=== PATIENT | male | born 1975 | race Caucasian/White ===

== ENCOUNTER 2019-03-12 16:26 | Inpatient (IN) ==
[2019-03-12] MEDS ORDERED: 0.9 % Sodium Chloride 1,000 ML IVC ONE ×2 (16:53→22:57)
[2019-03-12 17:25] LABS: Basophils % 0.4 %; Eosinophils # 0.3 K/mcL (0.0-0.6); Eosinophils % 2.2 %; Hematocrit 30.8 % (37.5-50.1); Hemoglobin 9.3 g/dL (12.9-16.9); Immature Granulocytes % 0.6 % (0-4); Lymphocytes # 1.6 K/mcL (0.6-4.6); Lymphocytes % 13.9 %; Mean Corpuscular HGB Conc 30.2 g/dL (31.6-35.5); Mean Corpuscular Hemoglobin 20.9 pg (28.0-33.3); Mean Corpuscular Volume 69.4 fL (83.0-100.0); Mean Platelet Volume 9.4 fL (9.4-12.4); Monocytes # 0.9 K/mcL (0.0-1.3); Monocytes % 8.2 %; Platelet Count 751 K/mcL (140-400); Red Blood Count 4.44 M/mcL (4.19-5.50); Red Cell Distribution Width 17.9 % (11.5-14.5); Segmented Neutrophils % 74.7 %; White Blood Count 11.3 K/mcL (4.3-11.1)
[2019-03-12 17:30] LABS: Basophils # 0.1 K/mcL (0.0-0.2); Neutrophils # 8.4 K/mcL (1.6-8.9)
[2019-03-12 17:47] LABS: Albumin 3.9 g/dL (3.5-5.7); Albumin/Globulin Ratio 0.9 (1.1-2.2); Bilirubin,Total 0.6 mg/dL (0.3-1.0); Calcium 9.3 mg/dL (8.6-10.3); Globulin 4.5 g/dL (2.4-3.5); Total Protein 8.4 g/dL (6.4-8.9)
[2019-03-12 17:53] LABS: Anisocytosis 1+ (Not Present); Hypochromasia Present (Not Present); Large Platelets Present (Not Present); Microcytosis Present (Not Present); Platelet Estimate Marked Increase (Normal); Stomatocytes 1+ (Not Present)
[2019-03-12 18:02] LABS: Bilirubin,Urine Negative (Negative); Blood,Urine Negative (Negative); Clarity,Urine Turbid (Clear); Color,Urine Yellow (Yellow); Glucose,Urine (UA) Normal (Normal); Ketones,Urine Negative (Negative); Leukocyte Esterase,Urine Negative (Negative); Nitrite,Urine Negative (Negative); Protein,Urine 30 mg/dL (Neg-Trace); Specific Gravity,Urine 1.014 (1.010-1.025); Urobilinogen,Urine Normal (Normal)
[2019-03-12 18:05] LABS: Bacteria,Urine None Seen per hpf (None-Few); Hyaline Casts,Urine None Seen per lpf (None-Few); Squamous Epithelial Cell,Urine Many per lpf (None-Few)
[2019-03-12] MEDS ORDERED: Naloxone 0.4 MG/ML INJ IVP PRN (22:57)
[2019-03-12] MEDS ORDERED: Acetaminophen 325 MG TABLET PO PRN (23:00)
[2019-03-12] MEDS: *HR* HYDROcodone/Acet 5/325 mg TABLET PO PRN (23:47)
[2019-03-13] MEDS ORDERED: 0.9 % Sodium Chloride 1,000 ML IVC ONE ×2 (00:03→00:04)
[2019-03-13 02:16] LABS: Hematocrit 25.4 % (37.5-50.1); Mean Corpuscular HGB Conc 29.5 g/dL (31.6-35.5); Mean Corpuscular Hemoglobin 20.9 pg (28.0-33.3); Mean Corpuscular Volume 70.9 fL (83.0-100.0); Mean Platelet Volume 9.8 fL (9.4-12.4); Platelet Count 631 K/mcL (140-400); Red Blood Count 3.58 M/mcL (4.19-5.50); Red Cell Distribution Width 17.6 % (11.5-14.5); White Blood Count 10.3 K/mcL (4.3-11.1)
[2019-03-13 02:17] LABS: Hemoglobin 7.5 g/dL (12.9-16.9)
[2019-03-13 03:19] LABS: Albumin 3.2 g/dL (3.5-5.7); Albumin/Globulin Ratio 0.9 (1.1-2.2); Bilirubin,Total 0.4 mg/dL (0.3-1.0); Calcium 8.1 mg/dL (8.6-10.3); Globulin 3.5 g/dL (2.4-3.5); Magnesium 1.8 mg/dL (1.6-2.6); Phosphorous 4.5 mg/dL (2.7-4.5); Potassium 2.9 mEq/L (3.5-5.1); Total Protein 6.7 g/dL (6.4-8.9)
[2019-03-13] MEDS ORDERED: Calcium Gluconate 1gm/50mL 1 GM/50 ML BAG IVPB ONE (04:28)
[2019-03-13] MEDS: *HR* HYDROcodone/Acet 5/325 mg TABLET PO PRN ×3 (11:12→23:59)
[2019-03-13 14:28] LABS: Immature Reticulocyte % 25.7 % (11.0-38.0); Retculocyte # 0.06 M/mcL (0.05-0.10); Reticulocyte % 1.6 % (1.6-2.8)
[2019-03-13 14:45] LABS: Potassium 3.5 mEq/L (3.5-5.1)
[2019-03-13 14:46] LABS: % Iron Saturation 4 % (20-55); Iron 19 mcg/dL (65-175); Transferrin 338 mg/dL (203-362)
[2019-03-13 15:05] LABS: Ferritin 10 ng/mL (20-250)
[2019-03-13 15:11] LABS: Folate 20.1 ng/mL (3.0-16.0)
[2019-03-13] MEDS: Iron Polysaccharide Complex 150 MG CAPSULE PO SCH (17:04)
[2019-03-14] MEDS: Iron Polysaccharide Complex 150 MG CAPSULE PO SCH (08:08)
[2019-03-14 08:25] LABS: Calcium 9.4 mg/dL (8.6-10.3); Potassium 3.2 mEq/L (3.5-5.1)
[2019-03-14 08:40] LABS: Immature Granulocytes % 0.5 % (0-4)
[2019-03-14 08:41] LABS: Basophils # 0.1 K/mcL (0.0-0.2); Basophils % 0.5 %; Eosinophils # 0.3 K/mcL (0.0-0.6); Eosinophils % 2.9 %; Hematocrit 28.8 % (37.5-50.1); Hemoglobin 8.6 g/dL (12.9-16.9); Lymphocytes % 19.6 %; Mean Corpuscular HGB Conc 29.9 g/dL (31.6-35.5); Mean Corpuscular Hemoglobin 21.2 pg (28.0-33.3); Mean Corpuscular Volume 70.9 fL (83.0-100.0); Mean Platelet Volume 9.7 fL (9.4-12.4); Monocytes # 0.9 K/mcL (0.0-1.3); Monocytes % 9.1 %; Neutrophils # 6.9 K/mcL (1.6-8.9); Platelet Count 741 K/mcL (140-400); Red Blood Count 4.06 M/mcL (4.19-5.50); Red Cell Distribution Width 18.1 % (11.5-14.5); Segmented Neutrophils % 67.4 %; White Blood Count 10.3 K/mcL (4.3-11.1)
[2019-03-14 09:14] LABS: Anisocytosis 1+ (Not Present); Platelet Estimate Marked Increase (Normal)
[2019-03-14 09:15] LABS: Hypochromasia Present (Not Present); Microcytosis Present (Not Present)
[2019-03-14] MEDS: *HR* HYDROcodone/Acet 5/325 mg TABLET PO PRN ×2 (10:09→18:11)
[2019-03-14] MEDS ORDERED: Magnesium Oxide 400 MG TABLET PO ONE (11:12)
[2019-03-14] MEDS: 0.9 % Sodium Chloride 1,000 ML IVC SCH (12:38)
[2019-03-15] MEDS: *HR* HYDROcodone/Acet 5/325 mg TABLET PO PRN ×3 (00:28→20:04)
[2019-03-15] MEDS: 0.9 % Sodium Chloride 1,000 ML IVC SCH (00:29)
[2019-03-15 05:04] LABS: Basophils # 0.1 K/mcL (0.0-0.2); Basophils % 0.5 %; Eosinophils # 0.3 K/mcL (0.0-0.6); Eosinophils % 2.6 %; Hematocrit 27.9 % (37.5-50.1); Hemoglobin 8.2 g/dL (12.9-16.9); Immature Granulocytes % 0.5 % (0-4); Lymphocytes # 2.3 K/mcL (0.6-4.6); Lymphocytes % 21.9 %; Mean Corpuscular HGB Conc 29.4 g/dL (31.6-35.5); Mean Corpuscular Hemoglobin 21.2 pg (28.0-33.3); Mean Corpuscular Volume 72.3 fL (83.0-100.0); Mean Platelet Volume 9.3 fL (9.4-12.4); Monocytes # 0.9 K/mcL (0.0-1.3); Monocytes % 8.4 %; Neutrophils # 6.8 K/mcL (1.6-8.9); Platelet Count 685 K/mcL (140-400); Red Blood Count 3.86 M/mcL (4.19-5.50); Red Cell Distribution Width 18.2 % (11.5-14.5); Segmented Neutrophils % 66.1 %; White Blood Count 10.3 K/mcL (4.3-11.1)
[2019-03-15 05:26] LABS: Calcium 9.3 mg/dL (8.6-10.3); Potassium 3.1 mEq/L (3.5-5.1)
[2019-03-15] MEDS: Iron Polysaccharide Complex 150 MG CAPSULE PO SCH (08:47)
[2019-03-15 09:07] LABS: Magnesium 2.1 mg/dL (1.6-2.6)
[2019-03-15] MEDS ORDERED: 0.9 % Sodium Chloride 1,000 ML IVC SCH (13:45)
[2019-03-16] MEDS: *HR* HYDROcodone/Acet 5/325 mg TABLET PO PRN ×3 (02:09→19:34)
[2019-03-16 05:31] LABS: Eosinophils % 3.1 %; Mean Platelet Volume 10.2 fL (9.4-12.4)
[2019-03-16 05:33] LABS: Basophils % 0.4 %; Eosinophils # 0.3 K/mcL (0.0-0.6); Hematocrit 27.2 % (37.5-50.1); Hemoglobin 8.1 g/dL (12.9-16.9); Immature Granulocytes % 0.5 % (0-4); Lymphocytes # 1.8 K/mcL (0.6-4.6); Lymphocytes % 19.3 %; Mean Corpuscular HGB Conc 29.8 g/dL (31.6-35.5); Mean Corpuscular Hemoglobin 20.9 pg (28.0-33.3); Mean Corpuscular Volume 70.3 fL (83.0-100.0); Monocytes # 0.8 K/mcL (0.0-1.3); Monocytes % 9.1 %; Neutrophils # 6.2 K/mcL (1.6-8.9); Platelet Count 663 K/mcL (140-400); Red Blood Count 3.87 M/mcL (4.19-5.50); Red Cell Distribution Width 18.3 % (11.5-14.5); Segmented Neutrophils % 67.6 %; White Blood Count 9.2 K/mcL (4.3-11.1)
[2019-03-16 05:46] LABS: Calcium 9.2 mg/dL (8.6-10.3); Potassium 3.3 mEq/L (3.5-5.1)
[2019-03-16 06:25] LABS: Hypochromasia Present (Not Present)
[2019-03-16 06:26] LABS: Anisocytosis 1+ (Not Present); Platelet Estimate Marked Increase (Normal)
[2019-03-16] MEDS: Iron Polysaccharide Complex 150 MG CAPSULE PO SCH (09:44)
[2019-03-17] MEDS: *HR* HYDROcodone/Acet 5/325 mg TABLET PO PRN ×4 (01:40→22:41)
[2019-03-17] MEDS: Cholecalciferol (D-3) 1,000 UNIT (25MCG) TABLET PO SCH (09:55)
[2019-03-17] MEDS: Iron Polysaccharide Complex 150 MG CAPSULE PO SCH (09:55)
[2019-03-17 10:28] LABS: Basophils # 0.1 K/mcL (0.0-0.2); Basophils % 0.5 %; Eosinophils # 0.2 K/mcL (0.0-0.6); Eosinophils % 2.5 %; Hematocrit 30.2 % (37.5-50.1); Hemoglobin 8.9 g/dL (12.9-16.9); Immature Granulocytes % 0.3 % (0-4); Lymphocytes # 1.6 K/mcL (0.6-4.6); Lymphocytes % 16.3 %; Mean Corpuscular HGB Conc 29.5 g/dL (31.6-35.5); Mean Corpuscular Hemoglobin 20.9 pg (28.0-33.3); Mean Corpuscular Volume 71.1 fL (83.0-100.0); Mean Platelet Volume 9.3 fL (9.4-12.4); Monocytes % 10.1 %; Neutrophils # 6.8 K/mcL (1.6-8.9); Platelet Count 705 K/mcL (140-400); Red Blood Count 4.25 M/mcL (4.19-5.50); Red Cell Distribution Width 18.3 % (11.5-14.5); Segmented Neutrophils % 70.3 %; White Blood Count 9.7 K/mcL (4.3-11.1)
[2019-03-17 10:49] LABS: Calcium 9.9 mg/dL (8.6-10.3); Potassium 3.3 mEq/L (3.5-5.1)
[2019-03-18 05:39] LABS: Calcium 10.5 mg/dL (8.6-10.3); Potassium 3.7 mEq/L (3.5-5.1)
[2019-03-18] MEDS ORDERED: 0.9 % Sodium Chloride 1,000 ML IV ONE (05:46)
[2019-03-18] MEDS: Iron Polysaccharide Complex 150 MG CAPSULE PO SCH (07:44)
[2019-03-18] MEDS: Cholecalciferol (D-3) 1,000 UNIT (25MCG) TABLET PO SCH (07:44)
[2019-03-18 09:26] LABS: Potassium 3.6 mEq/L (3.5-5.1)
[2019-03-18] MEDS: *HR* HYDROcodone/Acet 5/325 mg TABLET PO PRN ×3 (10:31→22:49)
[2019-03-18] MEDS: 0.9 % Sodium Chloride 1,000 ML IVC SCH ×2 (11:37→21:40)
[2019-03-19 04:26] LABS: Calcium 9.5 mg/dL (8.6-10.3); Potassium 3.1 mEq/L (3.5-5.1)
[2019-03-19] MEDS: Cholecalciferol (D-3) 1,000 UNIT (25MCG) TABLET PO SCH (07:55)
[2019-03-19] MEDS: Iron Polysaccharide Complex 150 MG CAPSULE PO SCH (07:55)
[2019-03-19] MEDS: *HR* HYDROcodone/Acet 5/325 mg TABLET PO PRN ×2 (10:21→19:27)
[2019-03-19] MEDS ORDERED: 0.9 % Sodium Chloride 1,000 ML ONE (12:40)
[2019-03-19] MEDS: 0.9 % Sodium Chloride 1,000 ML IVC SCH ×2 (13:00→23:01)
[2019-03-20] MEDS: *HR* HYDROcodone/Acet 5/325 mg TABLET PO PRN ×3 (01:38→17:47)
[2019-03-20 06:09] LABS: Calcium 9.5 mg/dL (8.6-10.3); Potassium 3.2 mEq/L (3.5-5.1)
[2019-03-20] MEDS: Iron Polysaccharide Complex 150 MG CAPSULE PO SCH (09:07)
[2019-03-20] MEDS: Cholecalciferol (D-3) 1,000 UNIT (25MCG) TABLET PO SCH (09:07)
[2019-03-21] MEDS: *HR* HYDROcodone/Acet 5/325 mg TABLET PO PRN ×4 (00:20→22:01)
[2019-03-21 04:40] LABS: Hematocrit 31.7 % (37.5-50.1); Hemoglobin 9.5 g/dL (12.9-16.9); Mean Corpuscular Hemoglobin 21.1 pg (28.0-33.3); Mean Corpuscular Volume 70.3 fL (83.0-100.0); Mean Platelet Volume 9.7 fL (9.4-12.4); Platelet Count 596 K/mcL (140-400); Red Blood Count 4.51 M/mcL (4.19-5.50); Red Cell Distribution Width 18.8 % (11.5-14.5); White Blood Count 8.8 K/mcL (4.3-11.1)
[2019-03-21 05:06] LABS: Calcium 10.6 mg/dL (8.6-10.3); Magnesium 2.2 mg/dL (1.6-2.6); Potassium 3.3 mEq/L (3.5-5.1)
[2019-03-21] MEDS: 0.9 % Sodium Chloride 1,000 ML IVC SCH ×2 (08:32→18:52)
[2019-03-21] MEDS: Iron Polysaccharide Complex 150 MG CAPSULE PO SCH (08:33)
[2019-03-21] MEDS: Cholecalciferol (D-3) 1,000 UNIT (25MCG) TABLET PO SCH (08:33)
[2019-03-22] MEDS: *HR* HYDROcodone/Acet 5/325 mg TABLET PO PRN ×2 (04:05→13:24)
[2019-03-22 05:24] LABS: Albumin 4.1 g/dL (3.5-5.7); Bilirubin,Total 0.7 mg/dL (0.3-1.0); Calcium 9.7 mg/dL (8.6-10.3); Globulin 4.2 g/dL (2.4-3.5); Potassium 3.2 mEq/L (3.5-5.1); Total Protein 8.3 g/dL (6.4-8.9)
[2019-03-22] MEDS: Iron Polysaccharide Complex 150 MG CAPSULE PO SCH (08:27)
[2019-03-22 11:53] VITALS: BP 115/82
== END 2019-03-22 13:39 | disposition home or self-care (01) | DRG 683 ==
LOC: EMEROOARM 16:26 → SUATTDRO 18:54 → 2ANU 18:54
PROVIDERS: ADMIT Student in an Organized Health Care Education/Training Program; ATTEND Internal Medicine

== ENCOUNTER 2019-03-24 18:40 | Observation (INO) ==
[2019-03-24 19:45] LABS: Basophils # 0.1 K/mcL (0.0-0.2); Basophils % 0.7 %; Eosinophils # 0.3 K/mcL (0.0-0.6); Hematocrit 36.6 % (37.5-50.1); Immature Granulocytes % 0.6 % (0-4); Lymphocytes # 2.2 K/mcL (0.6-4.6); Mean Corpuscular HGB Conc 31.7 g/dL (31.6-35.5); Mean Corpuscular Hemoglobin 21.7 pg (28.0-33.3); Mean Corpuscular Volume 68.4 fL (83.0-100.0); Mean Platelet Volume 10.4 fL (9.4-12.4); Monocytes # 1.2 K/mcL (0.0-1.3); Monocytes % 9.4 %; Neutrophils # 8.5 K/mcL (1.6-8.9); Platelet Count 731 K/mcL (140-400); Red Blood Count 5.35 M/mcL (4.19-5.50); Red Cell Distribution Width 19.9 % (11.5-14.5); Segmented Neutrophils % 69.3 %; White Blood Count 12.3 K/mcL (4.3-11.1)
[2019-03-24 19:46] LABS: Hemoglobin 11.6 g/dL (12.9-16.9)
[2019-03-24] MEDS ORDERED: Morphine Sulfate 2 MG/ML SYRINGE IVP ONE (19:46)
[2019-03-24] MEDS ORDERED: Isovue-370 500 ML BOTTLE IVP ONE (19:46)
[2019-03-24] MEDS ORDERED: Pantoprazole 40 MG VIAL IVP ONE (19:46)
[2019-03-24] MEDS ORDERED: 0.9 % Sodium Chloride 1,000 ML IVC ONE (19:46)
[2019-03-24] MEDS ORDERED: Ondansetron 4 MG/2 ML VIAL IVP ONE (19:46)
[2019-03-24 20:04] LABS: Microcytosis Present (Not Present)
[2019-03-24 20:05] LABS: Platelet Estimate Marked Increase (Normal)
[2019-03-24 20:12] LABS: Albumin 4.9 g/dL (3.5-5.7); Albumin/Globulin Ratio 0.9 (1.1-2.2); Bilirubin,Direct 0.3 mg/dL (0.0-0.2); Bilirubin,Indirect 0.6 mg/dL (0.0-1.0); Bilirubin,Total 0.9 mg/dL (0.3-1.0); Globulin 5.3 g/dL (2.4-3.5); Potassium 3.2 mEq/L (3.5-5.1); Total Protein 10.2 g/dL (6.4-8.9)
[2019-03-24] MEDS ORDERED: 0.9 % Sodium Chloride 1,000 ML IVC SCH (20:45)
[2019-03-25] MEDS ORDERED: Potassium Chloride Elixir 20 MEQ/15 ML UDC PO ONE (00:36)
[2019-03-25 01:11] LABS: Bilirubin,Urine Negative (Negative); Blood,Urine Negative (Negative); Clarity,Urine Cloudy (Clear); Color,Urine Yellow (Yellow); Glucose,Urine (UA) Normal (Normal); Ketones,Urine Negative (Negative); Leukocyte Esterase,Urine Negative (Negative); Nitrite,Urine Negative (Negative); Protein,Urine 100 mg/dL (Neg-Trace); Specific Gravity,Urine 1.022 (1.010-1.025); Urobilinogen,Urine Normal (Normal)
[2019-03-25] MEDS ORDERED: Acetaminophen 325 MG TABLET PO PRN (01:44)
[2019-03-25] MEDS ORDERED: Ondansetron 4 MG/2 ML VIAL IVP PRN (02:14)
[2019-03-25] MEDS: *HR* Heparin 5,000 UNIT/ML VIAL SQ SCH ×2 (05:35→16:04)
[2019-03-25 06:18] LABS: Phosphorous 4.8 mg/dL (2.7-4.5)
[2019-03-25 06:19] LABS: Albumin 4.1 g/dL (3.5-5.7); Bilirubin,Direct 0.2 mg/dL (0.0-0.2); Bilirubin,Indirect 0.4 mg/dL (0.0-1.0); Bilirubin,Total 0.6 mg/dL (0.3-1.0); Calcium 9.7 mg/dL (8.6-10.3); Globulin 4.2 g/dL (2.4-3.5); Potassium 3.4 mEq/L (3.5-5.1); Total Protein 8.3 g/dL (6.4-8.9)
[2019-03-25 07:10] LABS: Hepatitis B Surface Antigen Nonreactive (Nonreactive)
[2019-03-25 07:38] LABS: Hepatitis B Core IgM Nonreactive (Nonreactive)
[2019-03-25 07:39] LABS: Hepatitis C Virus Antibody Nonreactive (Nonreactive)
[2019-03-25 07:40] LABS: Hepatitis A Antibody IgM Nonreactive (Nonreactive)
[2019-03-25] MEDS: 0.9 % Sodium Chloride 1,000 ML IVC SCH ×4 (09:32→21:08)
[2019-03-25] MEDS: Fluticasone Propionate Nasal 50 MCG/SPRAY BOTTLE NS SCH ×2 (09:35→19:41)
[2019-03-25] MEDS: *HR* OxyCODONE Immed Rel 5 MG TABLET PO PRN ×2 (16:04→23:23)
[2019-03-26] MEDS: 0.9 % Sodium Chloride 1,000 ML IVC SCH ×3 (03:42→20:07)
[2019-03-26] MEDS: *HR* Heparin 5,000 UNIT/ML VIAL SQ SCH ×2 (05:19→17:52)
[2019-03-26 06:28] LABS: Hematocrit 28.1 % (37.5-50.1); Hemoglobin 8.3 g/dL (12.9-16.9); Mean Corpuscular HGB Conc 29.5 g/dL (31.6-35.5); Mean Corpuscular Hemoglobin 21.2 pg (28.0-33.3); Mean Corpuscular Volume 71.9 fL (83.0-100.0); Mean Platelet Volume 10.9 fL (9.4-12.4); Platelet Count 387 K/mcL (140-400); Red Blood Count 3.91 M/mcL (4.19-5.50); Red Cell Distribution Width 19.2 % (11.5-14.5); White Blood Count 8.4 K/mcL (4.3-11.1)
[2019-03-26 06:49] LABS: Albumin 3.6 g/dL (3.5-5.7); Albumin/Globulin Ratio 1.1 (1.1-2.2); Bilirubin,Total 0.6 mg/dL (0.3-1.0); Calcium 8.8 mg/dL (8.6-10.3); Globulin 3.4 g/dL (2.4-3.5); Magnesium 1.7 mg/dL (1.6-2.6); Potassium 3.2 mEq/L (3.5-5.1)
[2019-03-26] MEDS: Fluticasone Propionate Nasal 50 MCG/SPRAY BOTTLE NS SCH ×2 (09:22→20:03)
[2019-03-26] MEDS: *HR* OxyCODONE Immed Rel 5 MG TABLET PO PRN ×2 (11:20→20:03)
[2019-03-27] MEDS: 0.9 % Sodium Chloride 1,000 ML IVC SCH ×2 (00:13→03:52)
[2019-03-27 02:17] LABS: Hematocrit 29.4 % (37.5-50.1); Hemoglobin 8.6 g/dL (12.9-16.9); Mean Corpuscular HGB Conc 29.3 g/dL (31.6-35.5); Mean Corpuscular Hemoglobin 21.6 pg (28.0-33.3); Mean Corpuscular Volume 73.9 fL (83.0-100.0); Mean Platelet Volume 10.5 fL (9.4-12.4); Platelet Count 351 K/mcL (140-400); Red Blood Count 3.98 M/mcL (4.19-5.50); Red Cell Distribution Width 19.2 % (11.5-14.5)
[2019-03-27] MEDS: *HR* OxyCODONE Immed Rel 5 MG TABLET PO PRN (02:18)
[2019-03-27 02:43] LABS: Albumin 3.5 g/dL (3.5-5.7); Bilirubin,Total 0.5 mg/dL (0.3-1.0); Calcium 8.8 mg/dL (8.6-10.3); Globulin 3.5 g/dL (2.4-3.5); Potassium 3.6 mEq/L (3.5-5.1)
[2019-03-27] MEDS: *HR* Heparin 5,000 UNIT/ML VIAL SQ SCH (05:36)
[2019-03-27] MEDS: Fluticasone Propionate Nasal 50 MCG/SPRAY BOTTLE NS SCH (10:32)
[2019-03-27 11:19] VITALS: BP 155/85
== END 2019-03-27 13:24 | disposition home or self-care (01) ==
LOC: EMEROOARM 18:40 → 3NENU 18:40 → SUATTDRO 03-25 00:27 → 3NENU 03-25 01:05 → 3BNU 03-25 11:17
PROVIDERS: ADMIT Internal Medicine; ATTEND Family Medicine

== ENCOUNTER 2019-04-01 01:13 | Observation (INO) ==
[2019-04-01 02:27] LABS: Basophils # 0.1 K/mcL (0.0-0.2); Basophils % 0.6 %; Eosinophils # 0.3 K/mcL (0.0-0.6); Eosinophils % 2.2 %; Hematocrit 37.1 % (37.5-50.1); Immature Granulocytes % 0.6 % (0-4); Immature Platelets 4.7 % (1.1-6.1); Lymphocytes # 1.8 K/mcL (0.6-4.6); Lymphocytes % 13.3 %; Mean Corpuscular HGB Conc 31.3 g/dL (31.6-35.5); Mean Corpuscular Hemoglobin 21.9 pg (28.0-33.3); Monocytes # 0.9 K/mcL (0.0-1.3); Monocytes % 7.1 %; Platelet Count 411 K/mcL (140-400); Red Cell Distribution Width 20.8 % (11.5-14.5); Segmented Neutrophils % 76.2 %
[2019-04-01] MEDS ORDERED: *HR* FentaNYL (PF) 100 MCG/2 ML VIAL IVP ONE (02:35)
[2019-04-01] MEDS ORDERED: Ondansetron 4 MG/2 ML VIAL IVP ONE (02:35)
[2019-04-01 02:41] LABS: Hemoglobin 11.6 g/dL (12.9-16.9); Neutrophils # 10.1 K/mcL (1.6-8.9); White Blood Count 13.3 K/mcL (4.3-11.1)
[2019-04-01 02:45] LABS: Albumin 4.8 g/dL (3.5-5.7); Bilirubin,Total 1.2 mg/dL (0.3-1.0); Calcium 10.7 mg/dL (8.6-10.3); Globulin 4.9 g/dL (2.4-3.5); Potassium 3.7 mEq/L (3.5-5.1); Total Protein 9.7 g/dL (6.4-8.9)
[2019-04-01] MEDS ORDERED: 0.9 % Sodium Chloride 1,000 ML IVC ONE (02:55)
[2019-04-01 03:29] LABS: Bilirubin,Urine Small (Negative); Blood,Urine Negative (Negative); Clarity,Urine Cloudy (Clear); Color,Urine Dark Yellow (Yellow); Glucose,Urine (UA) Normal (Normal); Ketones,Urine Negative (Negative); Leukocyte Esterase,Urine Negative (Negative); Nitrite,Urine Negative (Negative); PH,Urine 5.5 pH Units (5.0-8.0); Protein,Urine 100 mg/dL (Neg-Trace); Specific Gravity,Urine 1.028 (1.010-1.025); Urobilinogen,Urine Normal (Normal)
[2019-04-01 03:59] LABS: Squamous Epithelial Cell,Urine Many per lpf (None-Few)
[2019-04-01 04:18] LABS: Granular Casts,Urine Few per lpf (None Seen); Hyaline Casts,Urine Many per lpf (None-Few)
[2019-04-01 04:19] LABS: Bacteria,Urine Moderate per hpf (None-Few)
[2019-04-01] MEDS ORDERED: Naloxone 0.4 MG/ML INJ IVP PRN ×2 (05:04→07:12)
[2019-04-01] MEDS ORDERED: Ondansetron 4 MG/2 ML VIAL IVP PRN (07:12)
[2019-04-01] MEDS: Ringers Solution, Lactated 1,000 ML IVC SCH ×2 (09:30→20:46)
[2019-04-01 10:19] LABS: Hepatitis B Surface Antigen Nonreactive (Nonreactive)
[2019-04-01 10:48] LABS: Hepatitis B Core IgM Nonreactive (Nonreactive)
[2019-04-01 10:49] LABS: Hepatitis A Antibody IgM Nonreactive (Nonreactive); Hepatitis C Virus Antibody Nonreactive (Nonreactive)
[2019-04-01] MEDS: *HR* HYDROcodone/Acet 5/325 mg TABLET PO PRN ×2 (15:34→21:44)
[2019-04-01] MEDS: Fluticasone Propionate Nasal 50 MCG/SPRAY BOTTLE NS SCH (20:50)
[2019-04-02 05:06] LABS: Basophils # 0.1 K/mcL (0.0-0.2); Basophils % 0.6 %; Eosinophils # 0.3 K/mcL (0.0-0.6); Eosinophils % 2.9 %; Hematocrit 33.9 % (37.5-50.1); Hemoglobin 10.2 g/dL (12.9-16.9); Immature Granulocytes % 0.7 % (0-4); Lymphocytes # 2.4 K/mcL (0.6-4.6); Lymphocytes % 24.3 %; Mean Corpuscular HGB Conc 30.1 g/dL (31.6-35.5); Mean Corpuscular Hemoglobin 21.4 pg (28.0-33.3); Mean Corpuscular Volume 71.1 fL (83.0-100.0); Mean Platelet Volume 10.6 fL (9.4-12.4); Monocytes # 0.9 K/mcL (0.0-1.3); Monocytes % 8.8 %; Neutrophils # 6.3 K/mcL (1.6-8.9); Platelet Count 439 K/mcL (140-400); Red Blood Count 4.77 M/mcL (4.19-5.50); Red Cell Distribution Width 20.7 % (11.5-14.5); Segmented Neutrophils % 62.7 %
[2019-04-02 05:26] LABS: Potassium 3.8 mEq/L (3.5-5.1)
[2019-04-02 05:28] LABS: Albumin 4.3 g/dL (3.5-5.7); Bilirubin,Direct 0.4 mg/dL (0.0-0.2); Bilirubin,Indirect 0.5 mg/dL (0.0-1.0); Bilirubin,Total 0.9 mg/dL (0.3-1.0); Globulin 4.1 g/dL (2.4-3.5); Magnesium 1.9 mg/dL (1.6-2.6); Phosphorous 4.4 mg/dL (2.7-4.5); Total Protein 8.4 g/dL (6.4-8.9)
[2019-04-02 05:51] LABS: Folate 14.1 ng/mL (3.0-16.0)
[2019-04-02] MEDS: amLODIPine 5 MG TABLET PO SCH (07:53)
[2019-04-02] MEDS: Cholecalciferol (D-3) 1,000 UNIT (25MCG) TABLET PO SCH (07:53)
[2019-04-02] MEDS: Fluticasone Propionate Nasal 50 MCG/SPRAY BOTTLE NS SCH ×2 (07:53→20:47)
[2019-04-02] MEDS: Iron Sucrose Complex 250 MG in 0.9 % Sodium Chloride 250 ML IVPB SCH (10:09)
[2019-04-02] MEDS: Cyanocobalamin (B-12) 1,000 MCG/ML VIAL SQ SCH (10:09)
[2019-04-02] MEDS: 0.9 % Sodium Chloride 1,000 ML IVC SCH ×2 (10:10→20:47)
[2019-04-02] MEDS: *HR* HYDROcodone/Acet 5/325 mg TABLET PO PRN ×3 (10:10→23:38)
[2019-04-03] MEDS: 0.9 % Sodium Chloride 1,000 ML IVC SCH (06:20)
[2019-04-03 06:23] VITALS: BP 145/90
[2019-04-03 06:42] LABS: Hemoglobin 9.2 g/dL (12.9-16.9); Mean Corpuscular HGB Conc 30.7 g/dL (31.6-35.5); Mean Corpuscular Volume 71.6 fL (83.0-100.0); Mean Platelet Volume 10.5 fL (9.4-12.4); Platelet Count 338 K/mcL (140-400); Red Blood Count 4.19 M/mcL (4.19-5.50); Red Cell Distribution Width 20.8 % (11.5-14.5)
[2019-04-03 07:01] LABS: Calcium 9.3 mg/dL (8.6-10.3); Potassium 3.6 mEq/L (3.5-5.1)
[2019-04-03] MEDS: Cholecalciferol (D-3) 1,000 UNIT (25MCG) TABLET PO SCH (09:14)
[2019-04-03] MEDS: amLODIPine 5 MG TABLET PO SCH (09:14)
[2019-04-03] MEDS: Cyanocobalamin (B-12) 1,000 MCG/ML VIAL SQ SCH (09:15)
[2019-04-03] MEDS: Iron Sucrose Complex 250 MG in 0.9 % Sodium Chloride 250 ML IVPB SCH (09:15)
[2019-04-03] MEDS: Fluticasone Propionate Nasal 50 MCG/SPRAY BOTTLE NS SCH (09:16)
[2019-04-03] MEDS: *HR* HYDROcodone/Acet 5/325 mg TABLET PO PRN (11:29)
== END 2019-04-03 15:30 | disposition home or self-care (01) ==
LOC: 3NENU 01:13 → EMEROOARM 01:13 → SUATTDRO 03:44 → 3NENU 04:30
PROVIDERS: ADMIT Family Medicine; ATTEND Student in an Organized Health Care Education/Training Program

== ENCOUNTER 2019-04-13 18:45 | Observation (INO) ==
[2019-04-13 19:24] LABS: Basophils # 0.1 K/mcL (0.0-0.2); Basophils % 0.7 %; Eosinophils # 0.1 K/mcL (0.0-0.6); Eosinophils % 0.6 %; Hematocrit 38.1 % (37.5-50.1); Hemoglobin 12.2 g/dL (12.9-16.9); Immature Granulocytes % 1.1 % (0-4); Lymphocytes # 1.4 K/mcL (0.6-4.6); Mean Corpuscular Hemoglobin 23.5 pg (28.0-33.3); Mean Corpuscular Volume 73.3 fL (83.0-100.0); Mean Platelet Volume 10.3 fL (9.4-12.4); Monocytes # 0.9 K/mcL (0.0-1.3); Monocytes % 8.6 %; Neutrophils # 7.5 K/mcL (1.6-8.9); Platelet Count 463 K/mcL (140-400); Red Cell Distribution Width 23.6 % (11.5-14.5)
[2019-04-13 19:44] LABS: Albumin 4.8 g/dL (3.5-5.7); Calcium 10.7 mg/dL (8.6-10.3); Globulin 4.6 g/dL (2.4-3.5); Potassium 4.4 mEq/L (3.5-5.1); Total Protein 9.4 g/dL (6.4-8.9)
[2019-04-13 19:46] LABS: Anisocytosis 2+ (Not Present); Ovalocytes 2+ (Not Present); Platelet Estimate Normal (Normal)
[2019-04-13 20:06] LABS: Bacteria,Urine None Seen per hpf (None-Few); Bilirubin,Urine Negative (Negative); Blood,Urine Negative (Negative); Clarity,Urine Cloudy (Clear); Color,Urine Dark Yellow (Yellow); Glucose,Urine (UA) Normal (Normal); Hyaline Casts,Urine Moderate per lpf (None-Few); Ketones,Urine Negative (Negative); Leukocyte Esterase,Urine Negative (Negative); Nitrite,Urine Negative (Negative); Protein,Urine 100 mg/dL (Neg-Trace); Specific Gravity,Urine 1.023 (1.010-1.025); Squamous Epithelial Cell,Urine Many per lpf (None-Few); Urobilinogen,Urine Normal (Normal)
[2019-04-13] MEDS ORDERED: Naloxone 0.4 MG/ML INJ IVP PRN (20:34)
[2019-04-13] MEDS ORDERED: 0.9 % Sodium Chloride 1,000 ML IVC SCH (20:45)
[2019-04-13 22:02] LABS: Sodium, Urine 11.5 mEq/L
[2019-04-13 22:07] LABS: Estimated Average Glucose 120 mg/dl
[2019-04-13 23:27] LABS: Calcium 10.5 mg/dL (8.6-10.3); Potassium 4.2 mEq/L (3.5-5.1)
[2019-04-13] MEDS ORDERED: *HR* Dextrose 50 % in Water (Syg) 50 ML SYRINGE IVP PRN (23:46)
[2019-04-13] MEDS ORDERED: D5% in Water 1,000 ML IVC PRN (23:46)
[2019-04-13] MEDS ORDERED: Dextrose Gel 15 GM/37.5 ML TUBE PO PRN ×2 (23:46)
[2019-04-14] MEDS ORDERED: 0.9 % Sodium Chloride 1,000 ML IVC SCH (00:30)
[2019-04-14] MEDS: *HR* Heparin 5,000 UNIT/ML VIAL SQ SCH ×3 (06:17→23:50)
[2019-04-14 06:51] LABS: Basophils # 0.1 K/mcL (0.0-0.2); Basophils % 0.6 %; Eosinophils # 0.1 K/mcL (0.0-0.6); Eosinophils % 1.4 %; Hematocrit 32.8 % (37.5-50.1); Immature Granulocytes % 1.1 % (0-4); Lymphocytes # 1.9 K/mcL (0.6-4.6); Lymphocytes % 23.8 %; Mean Corpuscular HGB Conc 31.4 g/dL (31.6-35.5); Mean Corpuscular Volume 73.4 fL (83.0-100.0); Mean Platelet Volume 10.7 fL (9.4-12.4); Monocytes # 0.8 K/mcL (0.0-1.3); Monocytes % 10.5 %; Platelet Count 383 K/mcL (140-400); Red Blood Count 4.47 M/mcL (4.19-5.50); Red Cell Distribution Width 23.7 % (11.5-14.5); Segmented Neutrophils % 62.6 %; White Blood Count 7.9 K/mcL (4.3-11.1)
[2019-04-14 07:00] LABS: Hemoglobin 10.3 g/dL (12.9-16.9)
[2019-04-14 07:16] LABS: Albumin 4.1 g/dL (3.5-5.7); Albumin/Globulin Ratio 1.1 (1.1-2.2); Bilirubin,Direct 0.3 mg/dL (0.0-0.2); Bilirubin,Indirect 0.6 mg/dL (0.0-1.0); Bilirubin,Total 0.9 mg/dL (0.3-1.0); Calcium 9.4 mg/dL (8.6-10.3); Globulin 3.7 g/dL (2.4-3.5); Magnesium 1.7 mg/dL (1.6-2.6); Potassium 3.9 mEq/L (3.5-5.1); Total Protein 7.8 g/dL (6.4-8.9)
[2019-04-14 07:30] LABS: Anisocytosis 2+ (Not Present); Platelet Estimate Normal (Normal); Poikilocytosis 1+ (Not Present)
[2019-04-14] MEDS: Insulin LISPRO 300 UNITS/3 ML VIAL SQ SCH ×3 (08:44→16:30)
[2019-04-14] MEDS: Cholecalciferol (D-3) 1,000 UNIT (25MCG) TABLET PO SCH (08:48)
[2019-04-14] MEDS: Fluticasone Propionate Nasal 50 MCG/SPRAY BOTTLE NS SCH ×2 (08:48→23:49)
[2019-04-14] MEDS: 0.9 % Sodium Chloride 1,000 ML IVC SCH ×2 (11:37→23:49)
[2019-04-14 14:50] LABS: Complement C3 199 mg/dL (87-200)
[2019-04-15 05:48] LABS: Basophils # 0.1 K/mcL (0.0-0.2); Basophils % 0.8 %; Eosinophils # 0.1 K/mcL (0.0-0.6); Eosinophils % 1.5 %; Hematocrit 30.8 % (37.5-50.1); Hemoglobin 9.7 g/dL (12.9-16.9); Immature Granulocytes % 1.3 % (0-4); Lymphocytes % 25.2 %; Mean Corpuscular HGB Conc 31.5 g/dL (31.6-35.5); Mean Corpuscular Hemoglobin 23.3 pg (28.0-33.3); Mean Corpuscular Volume 73.9 fL (83.0-100.0); Mean Platelet Volume 10.8 fL (9.4-12.4); Monocytes # 0.7 K/mcL (0.0-1.3); Monocytes % 8.2 %; Platelet Count 363 K/mcL (140-400); Red Blood Count 4.17 M/mcL (4.19-5.50); Red Cell Distribution Width 23.1 % (11.5-14.5)
[2019-04-15 06:10] LABS: Calcium 9.3 mg/dL (8.6-10.3); Potassium 3.6 mEq/L (3.5-5.1)
[2019-04-15 06:12] LABS: % Iron Saturation 15 % (20-55); Iron 65 mcg/dL (65-175); Transferrin 319 mg/dL (203-362)
[2019-04-15 06:23] LABS: Anisocytosis 1+ (Not Present); Platelet Estimate Normal (Normal)
[2019-04-15] MEDS: *HR* Heparin 5,000 UNIT/ML VIAL SQ SCH ×3 (06:37→21:41)
[2019-04-15] MEDS: Insulin LISPRO 300 UNITS/3 ML VIAL SQ SCH ×3 (08:01→16:22)
[2019-04-15] MEDS: Cholecalciferol (D-3) 1,000 UNIT (25MCG) TABLET PO SCH (08:03)
[2019-04-15] MEDS: Fluticasone Propionate Nasal 50 MCG/SPRAY BOTTLE NS SCH ×2 (08:03→21:42)
[2019-04-15] MEDS ORDERED: Acetaminophen 325 MG TABLET PO PRN (10:40)
[2019-04-15] MEDS: 0.9 % Sodium Chloride 1,000 ML IVC SCH ×2 (12:42→23:46)
[2019-04-16] MEDS: *HR* Heparin 5,000 UNIT/ML VIAL SQ SCH (05:36)
[2019-04-16] MEDS: Cholecalciferol (D-3) 1,000 UNIT (25MCG) TABLET PO SCH (07:20)
[2019-04-16] MEDS: Fluticasone Propionate Nasal 50 MCG/SPRAY BOTTLE NS SCH (07:20)
[2019-04-16] MEDS: Insulin LISPRO 300 UNITS/3 ML VIAL SQ SCH (07:35)
[2019-04-16 10:58] VITALS: BP 128/84
[2019-04-16 11:20] LABS: Calcium 9.4 mg/dL (8.6-10.3)
[2019-04-17 10:17] LABS: ANA IgG by ELISA NONE DETECTED (None Detected)
[2019-04-17 10:23] LABS: Serine Protease-3 Antibody 1 AU/mL (0-19)
[2019-04-18 01:38] LABS: Alpha 2 Globulin (PEP) 0.91 g/dL (0.48-1.05); Beta Globulin (PEP) 1.22 g/dL (0.48-1.10)
[2019-04-18 09:33] LABS: IFE Reflexed NOT DONE
== END 2019-04-16 11:36 | disposition home or self-care (01) ==
LOC: 2ANU 18:45 → EMEROOARM 18:45 → SUATTDRO 20:49 → 2ANU 21:09
PROVIDERS: ADMIT Family Medicine; ATTEND Internal Medicine

== ENCOUNTER 2019-04-22 22:41 | Observation (INO) ==
[2019-04-23 00:15] LABS: Bilirubin,Urine Small (Negative); Blood,Urine Negative (Negative); Clarity,Urine Cloudy (Clear); Color,Urine Dark Yellow (Yellow); Glucose,Urine (UA) Normal (Normal); Ketones,Urine Trace mg/dL (Negative); Leukocyte Esterase,Urine Negative (Negative); Nitrite,Urine Negative (Negative); Protein,Urine 100 mg/dL (Neg-Trace); Specific Gravity,Urine 1.028 (1.010-1.025); Urobilinogen,Urine Normal (Normal)
[2019-04-23 00:20] LABS: Bacteria,Urine None Seen per hpf (None-Few); Squamous Epithelial Cell,Urine Many per lpf (None-Few)
[2019-04-23] MEDS: 0.9 % Sodium Chloride 1,000 ML IVC SCH ×4 (00:33→17:28)
[2019-04-23 00:44] LABS: Hyaline Casts,Urine Few per lpf (None-Few)
[2019-04-23 00:49] LABS: Basophils % 0.3 %; Eosinophils % 0.1 %; Hemoglobin 12.6 g/dL (12.9-16.9); Immature Granulocytes % 0.7 % (0-4); Lymphocytes # 1.8 K/mcL (0.6-4.6); Lymphocytes % 13.9 %; Mean Corpuscular HGB Conc 32.3 g/dL (31.6-35.5); Mean Corpuscular Hemoglobin 24.2 pg (28.0-33.3); Mean Platelet Volume 9.9 fL (9.4-12.4); Monocytes % 7.9 %; Platelet Count 492 K/mcL (140-400); Red Cell Distribution Width 24.1 % (11.5-14.5); Segmented Neutrophils % 77.1 %
[2019-04-23 00:52] LABS: INR 1.2; Prothrombin Time 13.3 Seconds (9.4-12.1)
[2019-04-23 00:54] LABS: Activated Partial Thrombo Time 31.1 Seconds (26.0-36.0)
[2019-04-23 00:59] LABS: Alanine Aminotransferase 128 Units/L (7-52); Alkaline Phosphatase 287 Units/L (34-104); Aspartate Amino Transferase 89 Units/L (13-39); BUN/Creatinine Ratio 11 (6-26); Bilirubin,Direct 0.3 mg/dL (0.0-0.2); Bilirubin,Indirect 0.6 mg/dL (0.0-1.0); Bilirubin,Total 0.9 mg/dL (0.3-1.0); Blood Urea Nitrogen 42 mg/dL (6-20); Calcium 11.1 mg/dL (8.6-10.3); Carbon Dioxide 29 mEq/L (23-29); Chloride 84 mEq/L (98-107); Globulin 4.8 g/dL (2.4-3.5); Glucose 136 mg/dL (70-105); Magnesium 1.6 mg/dL (1.6-2.6); Osmolality,Calculated 289 (280-300); Phosphorous 3.8 mg/dL (2.7-4.5); Potassium 3.3 mEq/L (3.5-5.1); Sodium 133 mEq/L (136-145); Total Protein 9.8 g/dL (6.4-8.9); Troponin I < 0.03 ng/mL (< 0.04); eGFR For African Americans 21 (> 60); eGFR For Non-African Americans 17 (> 60)
[2019-04-23 01:23] LABS: Anisocytosis 1+ (Not Present); Hypochromasia Present (Not Present); Platelet Estimate Normal (Normal)
[2019-04-23] MEDS ORDERED: Naloxone 0.4 MG/ML INJ IVP PRN ×2 (03:14→09:08)
[2019-04-23] MEDS ORDERED: 0.9 % Sodium Chloride 1,000 ML IVC SCH (03:15)
[2019-04-23 05:06] LABS: Basophils # 0.1 K/mcL (0.0-0.2); Basophils % 0.4 %; Eosinophils % 0.2 %; Hematocrit 33.6 % (37.5-50.1); Immature Granulocytes % 0.6 % (0-4); Lymphocytes # 2.1 K/mcL (0.6-4.6); Lymphocytes % 17.9 %; Mean Corpuscular HGB Conc 32.1 g/dL (31.6-35.5); Mean Corpuscular Hemoglobin 24.6 pg (28.0-33.3); Mean Corpuscular Volume 76.5 fL (83.0-100.0); Mean Platelet Volume 10.3 fL (9.4-12.4); Monocytes # 1.1 K/mcL (0.0-1.3); Monocytes % 9.6 %; Neutrophils # 8.4 K/mcL (1.6-8.9); Platelet Count 381 K/mcL (140-400); Red Blood Count 4.39 M/mcL (4.19-5.50); Red Cell Distribution Width 23.9 % (11.5-14.5); Segmented Neutrophils % 71.3 %; White Blood Count 11.8 K/mcL (4.3-11.1)
[2019-04-23 05:13] LABS: Hemoglobin 10.8 g/dL (12.9-16.9)
[2019-04-23 05:14] LABS: Albumin/Globulin Ratio 1.1 (1.1-2.2); Bilirubin,Total 0.8 mg/dL (0.3-1.0); Calcium 9.3 mg/dL (8.6-10.3); Globulin 3.8 g/dL (2.4-3.5); Total Protein 7.8 g/dL (6.4-8.9)
[2019-04-23 05:51] LABS: Anisocytosis 1+ (Not Present); Hypochromasia Present (Not Present); Platelet Estimate Normal (Normal)
[2019-04-23 06:27] LABS: Adenovirus Not Detected (Not Detect); Bordetella Pertussis Not Detected (Not Detect); Chlamydophila pneumoniae Not Detected (Not Detect); Coronavirus 229E Not Detected (Not Detect); Coronavirus HKU1 Not Detected (Not Detect); Coronavirus NL63 Not Detected (Not Detect); Coronavirus OC43 Not Detected (Not Detect); Human Metapneumovirus Not Detected (Not Detect); Human Rhinovirus/Enterovirus Not Detected (Not Detect); Influenza A Subtype 2009 H1 Not Detected (Not Detect); Influenza A Untypeable Not Detected (Not Detect); Influenza B Not Detected (Not Detect); Mycoplasma pneumoniae Not Detected (Not Detect); Parainfluenza Virus 1 Not Detected (Not Detect); Parainfluenza Virus 2 Not Detected (Not Detect); Parainfluenza Virus 3 Not Detected (Not Detect); Parainfluenza Virus 4 Not Detected (Not Detect); Respiratory Syncytial Virus Not Detected (Not Detect)
[2019-04-23] MEDS ORDERED: Potassium Chloride Elixir 20 MEQ/15 ML UDC PO ONE ×2 (09:34→13:00)
[2019-04-23] MEDS: *HR* Heparin 5,000 UNIT/ML VIAL SQ SCH (17:29)
[2019-04-24] MEDS ORDERED: *HR* OxyCODONE Immed Rel 5 MG TABLET PO ONE (04:17)
[2019-04-24 04:37] LABS: Basophils # 0.1 K/mcL (0.0-0.2); Basophils % 0.5 %; Eosinophils # 0.1 K/mcL (0.0-0.6); Eosinophils % 0.9 %; Immature Granulocytes % 0.6 % (0-4); Lymphocytes # 2.2 K/mcL (0.6-4.6); Lymphocytes % 22.8 %; Mean Corpuscular HGB Conc 31.3 g/dL (31.6-35.5); Mean Corpuscular Hemoglobin 24.7 pg (28.0-33.3); Mean Platelet Volume 10.1 fL (9.4-12.4); Monocytes # 0.8 K/mcL (0.0-1.3); Monocytes % 7.9 %; Neutrophils # 6.4 K/mcL (1.6-8.9); Platelet Count 343 K/mcL (140-400); Red Blood Count 4.05 M/mcL (4.19-5.50); Red Cell Distribution Width 23.9 % (11.5-14.5); Segmented Neutrophils % 67.3 %; White Blood Count 9.5 K/mcL (4.3-11.1)
[2019-04-24 04:47] LABS: INR 1.2; Prothrombin Time 13.1 Seconds (9.4-12.1)
[2019-04-24] MEDS: *HR* Heparin 5,000 UNIT/ML VIAL SQ SCH (04:52)
[2019-04-24 04:56] LABS: Albumin 3.9 g/dL (3.5-5.7); Albumin/Globulin Ratio 1.1 (1.1-2.2); Bilirubin,Direct 0.3 mg/dL (0.0-0.2); Bilirubin,Indirect 0.5 mg/dL (0.0-1.0); Bilirubin,Total 0.8 mg/dL (0.3-1.0); Globulin 3.6 g/dL (2.4-3.5); Total Protein 7.5 g/dL (6.4-8.9)
[2019-04-24 05:01] LABS: Albumin 3.8 g/dL (3.5-5.7); Albumin/Globulin Ratio 1.1 (1.1-2.2); Bilirubin,Total 0.8 mg/dL (0.3-1.0); Calcium 9.3 mg/dL (8.6-10.3); Globulin 3.6 g/dL (2.4-3.5); Magnesium 1.6 mg/dL (1.6-2.6); Phosphorous 3.3 mg/dL (2.7-4.5); Potassium 2.8 mEq/L (3.5-5.1); Total Protein 7.4 g/dL (6.4-8.9)
[2019-04-24 05:11] LABS: Thyroid Stimulating Hormone 1.278 mcIU/mL (0.340-5.600)
[2019-04-24 05:17] LABS: Anisocytosis 2+ (Not Present); Platelet Estimate Normal (Normal)
[2019-04-24 05:18] LABS: Microcytosis Present (Not Present)
[2019-04-24 05:22] LABS: Folate 9.4 ng/mL (3.0-16.0)
[2019-04-24 05:23] LABS: Estimated Average Glucose 114 mg/dl
[2019-04-24 08:40] VITALS: BP 113/76
[2019-04-24] MEDS ORDERED: 0.9 % Sodium Chloride 500 ML IVC ONE (09:08)
[2019-04-26 01:40] LABS: Kappa Qnt Free Light Chains 3.66 mg/dL (0.33-1.94); Lambda Qnt Free Light Chains 2.31 mg/dL (0.57-2.63)
[2019-04-27 02:48] LABS: Alpha 2 Globulin (PEP) 1.03 g/dL (0.48-1.05); Beta Globulin (PEP) 1.27 g/dL (0.48-1.10)
[2019-04-27 09:35] LABS: IFE Reflexed NOT DONE
== END 2019-04-24 12:31 | disposition home or self-care (01) ==
LOC: 2ANU 22:41 → EMEROOARM 22:41 → SUATTDRO 04-23 03:05 → 2ANU 04-23 03:43
PROVIDERS: ADMIT Internal Medicine; ATTEND Internal Medicine

== ENCOUNTER 2019-04-26 15:10 | Inpatient (IN) ==
[2019-04-26] MEDS ORDERED: 0.9 % Sodium Chloride 1,000 ML ONE (15:39)
[2019-04-26 15:48] LABS: Basophils # 0.1 K/mcL (0.0-0.2); Basophils % 0.5 %; Eosinophils # 0.1 K/mcL (0.0-0.6); Eosinophils % 0.5 %; Immature Granulocytes % 0.6 % (0-4); Lymphocytes # 1.7 K/mcL (0.6-4.6); Mean Corpuscular HGB Conc 33.6 g/dL (31.6-35.5); Mean Corpuscular Hemoglobin 25.2 pg (28.0-33.3); Mean Corpuscular Volume 75.1 fL (83.0-100.0); Mean Platelet Volume 10.3 fL (9.4-12.4); Monocytes # 0.8 K/mcL (0.0-1.3); Monocytes % 5.5 %; Neutrophils # 11.4 K/mcL (1.6-8.9); Platelet Count 479 K/mcL (140-400); Red Blood Count 5.19 M/mcL (4.19-5.50); Red Cell Distribution Width 23.7 % (11.5-14.5); Segmented Neutrophils % 80.9 %; White Blood Count 14.1 K/mcL (4.3-11.1)
[2019-04-26 15:50] LABS: Hemoglobin 13.1 g/dL (12.9-16.9)
[2019-04-26] MEDS: 0.9 % Sodium Chloride 1,000 ML IVC SCH ×2 (16:02→17:09)
[2019-04-26 16:06] LABS: Albumin 4.7 g/dL (3.5-5.7); Bilirubin,Direct 0.4 mg/dL (0.0-0.2); Bilirubin,Total 1.4 mg/dL (0.3-1.0); Calcium 10.8 mg/dL (8.6-10.3); Globulin 4.6 g/dL (2.4-3.5); Potassium 2.9 mEq/L (3.5-5.1); Total Protein 9.3 g/dL (6.4-8.9)
[2019-04-26 16:15] LABS: Anisocytosis 1+ (Not Present); Macrocytosis Present (Not Present); Microcytosis Present (Not Present)
[2019-04-26 16:59] LABS: Magnesium 1.5 mg/dL (1.6-2.6)
[2019-04-26] MEDS ORDERED: *HR* FentaNYL (PF) 100 MCG/2 ML VIAL IVP ONE (17:01)
[2019-04-26] MEDS ORDERED: Naloxone 0.4 MG/ML INJ IVP PRN (17:21)
[2019-04-26] MEDS ORDERED: Potassium Chloride 40 MEQ, Lidocaine 1% 2 ML in 0.9 % Sodium Chloride 500 ML IVPB ONE (17:21)
[2019-04-26] MEDS ORDERED: Ondansetron 4 MG/2 ML VIAL IVP PRN (17:21)
[2019-04-26] MEDS ORDERED: *HR* Dextrose 50 % in Water (Syg) 50 ML SYRINGE IVP PRN (17:25)
[2019-04-26] MEDS ORDERED: Dextrose Gel 15 GM/37.5 ML TUBE PO PRN ×2 (17:25)
[2019-04-26] MEDS ORDERED: D5% in Water 1,000 ML IVC PRN (17:25)
[2019-04-27] MEDS: Ringers Solution, Lactated 1,000 ML IVC SCH ×2 (00:34→06:18)
[2019-04-27] MEDS: *HR* Heparin 5,000 UNIT/ML VIAL SQ SCH ×3 (00:34→17:44)
[2019-04-27] MEDS: Insulin LISPRO 300 UNITS/3 ML VIAL SQ SCH ×5 (00:52→18:32)
[2019-04-27 01:56] LABS: Bilirubin,Urine Small (Negative); Blood,Urine Negative (Negative); Clarity,Urine Clear (Clear); Color,Urine Dark Yellow (Yellow); Glucose,Urine (UA) Normal (Normal); Ketones,Urine Trace mg/dL (Negative); Leukocyte Esterase,Urine Negative (Negative); Nitrite,Urine Negative (Negative); Protein,Urine 100 mg/dL (Neg-Trace); Specific Gravity,Urine 1.022 (1.010-1.025); Urobilinogen,Urine Normal (Normal)
[2019-04-27 01:59] LABS: Bacteria,Urine None Seen per hpf (None-Few); Squamous Epithelial Cell,Urine Moderate per lpf (None-Few)
[2019-04-27] MEDS ORDERED: Ringers Solution, Lactated 1,000 ML IVC SCH (13:15)
[2019-04-27 14:58] LABS: Basophils % 0.4 %; Eosinophils # 0.2 K/mcL (0.0-0.6); Eosinophils % 2.4 %; Immature Granulocytes % 0.7 % (0-4); Lymphocytes # 1.8 K/mcL (0.6-4.6); Lymphocytes % 20.1 %; Mean Corpuscular HGB Conc 32.8 g/dL (31.6-35.5); Mean Corpuscular Volume 76.2 fL (83.0-100.0); Mean Platelet Volume 10.1 fL (9.4-12.4); Monocytes # 0.5 K/mcL (0.0-1.3); Monocytes % 5.6 %; Neutrophils # 6.4 K/mcL (1.6-8.9); Platelet Count 329 K/mcL (140-400); Red Cell Distribution Width 23.2 % (11.5-14.5); Segmented Neutrophils % 70.8 %; White Blood Count 9.1 K/mcL (4.3-11.1)
[2019-04-27 15:02] LABS: Hemoglobin 10.5 g/dL (12.9-16.9)
[2019-04-27 15:15] LABS: Albumin 3.9 g/dL (3.5-5.7); Albumin/Globulin Ratio 1.1 (1.1-2.2); Bilirubin,Total 0.9 mg/dL (0.3-1.0); Calcium 9.6 mg/dL (8.6-10.3); Globulin 3.5 g/dL (2.4-3.5); Magnesium 1.7 mg/dL (1.6-2.6); Phosphorous 2.5 mg/dL (2.7-4.5); Potassium 2.6 mEq/L (3.5-5.1); Total Protein 7.4 g/dL (6.4-8.9)
[2019-04-27 15:16] LABS: Anisocytosis 1+ (Not Present); Platelet Estimate Normal (Normal)
[2019-04-28] MEDS: Insulin LISPRO 300 UNITS/3 ML VIAL SQ SCH ×4 (06:10→22:03)
[2019-04-28] MEDS: *HR* Heparin 5,000 UNIT/ML VIAL SQ SCH ×2 (06:14→17:50)
[2019-04-28 07:48] LABS: Basophils % 0.5 %; Eosinophils # 0.3 K/mcL (0.0-0.6); Eosinophils % 3.2 %; Hematocrit 31.6 % (37.5-50.1); Hemoglobin 10.2 g/dL (12.9-16.9); Immature Granulocytes % 0.5 % (0-4); Lymphocytes # 1.7 K/mcL (0.6-4.6); Lymphocytes % 22.4 %; Mean Corpuscular HGB Conc 32.3 g/dL (31.6-35.5); Mean Corpuscular Hemoglobin 24.9 pg (28.0-33.3); Mean Corpuscular Volume 77.3 fL (83.0-100.0); Mean Platelet Volume 10.3 fL (9.4-12.4); Monocytes # 0.5 K/mcL (0.0-1.3); Neutrophils # 5.1 K/mcL (1.6-8.9); Platelet Count 316 K/mcL (140-400); Red Blood Count 4.09 M/mcL (4.19-5.50); Red Cell Distribution Width 23.4 % (11.5-14.5); Segmented Neutrophils % 66.4 %; White Blood Count 7.7 K/mcL (4.3-11.1)
[2019-04-28 07:51] LABS: Calcium 9.7 mg/dL (8.6-10.3); Magnesium 1.8 mg/dL (1.6-2.6); Phosphorous 3.2 mg/dL (2.7-4.5); Potassium 2.8 mEq/L (3.5-5.1)
[2019-04-28 07:53] LABS: Platelet Estimate Normal (Normal)
[2019-04-28 08:13] LABS: Anisocytosis 2+ (Not Present)
[2019-04-28] MEDS: Cholecalciferol (D-3) 1,000 UNIT (25MCG) TABLET PO SCH (08:51)
[2019-04-28] MEDS: Fluticasone Propionate Nasal 50 MCG/SPRAY BOTTLE NS SCH (08:52)
[2019-04-28] MEDS ORDERED: 0.9 % Sodium Chloride w KCl 40 MEQ/1,000 ML MLS IVC SCH (10:00)
[2019-04-28] MEDS ORDERED: Menthol 9.1 MG LOZENGE PO PRN (18:01)
[2019-04-29] MEDS: Insulin LISPRO 300 UNITS/3 ML VIAL SQ SCH ×4 (01:22→17:21)
[2019-04-29] MEDS: *HR* Heparin 5,000 UNIT/ML VIAL SQ SCH ×2 (04:57→17:09)
[2019-04-29 06:08] LABS: Basophils % 0.3 %; Eosinophils # 0.2 K/mcL (0.0-0.6); Hematocrit 32.4 % (37.5-50.1); Hemoglobin 10.2 g/dL (12.9-16.9); Immature Granulocytes % 0.6 % (0-4); Lymphocytes # 1.7 K/mcL (0.6-4.6); Lymphocytes % 17.6 %; Mean Corpuscular HGB Conc 31.5 g/dL (31.6-35.5); Mean Corpuscular Hemoglobin 25.4 pg (28.0-33.3); Mean Corpuscular Volume 80.6 fL (83.0-100.0); Mean Platelet Volume 10.2 fL (9.4-12.4); Monocytes # 0.6 K/mcL (0.0-1.3); Monocytes % 6.8 %; Platelet Count 294 K/mcL (140-400); Red Blood Count 4.02 M/mcL (4.19-5.50); Red Cell Distribution Width 23.3 % (11.5-14.5); Segmented Neutrophils % 72.7 %; White Blood Count 9.4 K/mcL (4.3-11.1)
[2019-04-29 06:14] LABS: Neutrophils # 6.8 K/mcL (1.6-8.9)
[2019-04-29 06:23] LABS: Calcium 9.5 mg/dL (8.6-10.3); Magnesium 1.5 mg/dL (1.6-2.6); Phosphorous 2.4 mg/dL (2.7-4.5); Potassium 3.4 mEq/L (3.5-5.1)
[2019-04-29 06:42] LABS: Anisocytosis 1+ (Not Present); Platelet Estimate Normal (Normal)
[2019-04-29] MEDS ORDERED: Potassium Chloride 40 MEQ in D5% in 0.9% NACL 1,000 ML IVC SCH (07:30)
[2019-04-29] MEDS: Cholecalciferol (D-3) 1,000 UNIT (25MCG) TABLET PO SCH (08:49)
[2019-04-29] MEDS: Fluticasone Propionate Nasal 50 MCG/SPRAY BOTTLE NS SCH (08:49)
[2019-04-29] MEDS: Benzonatate 100 MG CAPSULE PO PRN ×2 (14:34→21:23)
[2019-04-30] MEDS: Insulin LISPRO 300 UNITS/3 ML VIAL SQ SCH ×4 (00:27→17:48)
[2019-04-30] MEDS: Benzonatate 100 MG CAPSULE PO PRN ×3 (03:10→22:52)
[2019-04-30] MEDS: *HR* Heparin 5,000 UNIT/ML VIAL SQ SCH ×2 (05:15→17:46)
[2019-04-30 07:55] LABS: Calcium 9.4 mg/dL (8.6-10.3); Magnesium 1.6 mg/dL (1.6-2.6); Phosphorous 2.1 mg/dL (2.7-4.5); Potassium 3.7 mEq/L (3.5-5.1)
[2019-04-30] MEDS ORDERED: levoFLOXacin 750 MG/150 ML 750 MG/150 ML BAG IVPB SCH (08:00)
[2019-04-30] MEDS: Cholecalciferol (D-3) 1,000 UNIT (25MCG) TABLET PO SCH (08:01)
[2019-04-30] MEDS: Fluticasone Propionate Nasal 50 MCG/SPRAY BOTTLE NS SCH (08:01)
[2019-04-30 09:29] LABS: Adenovirus Not Detected (Not Detect); Coronavirus 229E Not Detected (Not Detect); Coronavirus HKU1 Not Detected (Not Detect); Coronavirus NL63 Not Detected (Not Detect)
[2019-04-30 09:30] LABS: Coronavirus OC43 Not Detected (Not Detect); Human Metapneumovirus Not Detected (Not Detect); Human Rhinovirus/Enterovirus Not Detected (Not Detect)
[2019-04-30 09:34] LABS: Bordetella Pertussis Not Detected (Not Detect); Chlamydophila pneumoniae Not Detected (Not Detect); Influenza A Subtype 2009 H1 DETECTED (Not Detect); Influenza B Not Detected (Not Detect); Mycoplasma pneumoniae Not Detected (Not Detect); Parainfluenza Virus 1 Not Detected (Not Detect); Parainfluenza Virus 2 Not Detected (Not Detect); Parainfluenza Virus 3 Not Detected (Not Detect); Parainfluenza Virus 4 Not Detected (Not Detect); Respiratory Syncytial Virus Not Detected (Not Detect)
[2019-04-30] MEDS ORDERED: Ringers Solution, Lactated 1,000 ML IVC SCH (10:15)
[2019-04-30] MEDS ORDERED: Acetaminophen 325 MG TABLET PO PRN (17:43)
[2019-04-30 18:20] LABS: Bilirubin,Urine Negative (Negative); Blood,Urine Negative (Negative); Clarity,Urine Clear (Clear); Color,Urine Yellow (Yellow); Glucose,Urine (UA) Normal (Normal); Ketones,Urine Negative (Negative); Leukocyte Esterase,Urine Negative (Negative); Nitrite,Urine Negative (Negative); PH,Urine 6.5 pH Units (5.0-8.0); Protein,Urine 100 mg/dL (Neg-Trace); Specific Gravity,Urine 1.017 (1.010-1.025); Urobilinogen,Urine Normal (Normal)
[2019-04-30 18:24] LABS: Bacteria,Urine None Seen per hpf (None-Few); Hyaline Casts,Urine Few per lpf (None-Few); Squamous Epithelial Cell,Urine Many per lpf (None-Few)
[2019-05-01] MEDS: Insulin LISPRO 300 UNITS/3 ML VIAL SQ SCH ×4 (01:32→16:52)
[2019-05-01] MEDS: *HR* Heparin 5,000 UNIT/ML VIAL SQ SCH ×2 (04:22→16:52)
[2019-05-01] MEDS: Cholecalciferol (D-3) 1,000 UNIT (25MCG) TABLET PO SCH (08:35)
[2019-05-01] MEDS: Fluticasone Propionate Nasal 50 MCG/SPRAY BOTTLE NS SCH (08:35)
[2019-05-01 09:40] LABS: Calcium 9.5 mg/dL (8.6-10.3); Potassium 3.7 mEq/L (3.5-5.1)
[2019-05-01] MEDS: Benzonatate 100 MG CAPSULE PO PRN (17:51)
[2019-05-02] MEDS: Insulin LISPRO 300 UNITS/3 ML VIAL SQ SCH ×2 (03:24→05:43)
[2019-05-02] MEDS: *HR* Heparin 5,000 UNIT/ML VIAL SQ SCH (05:43)
[2019-05-02 06:18] LABS: Calcium 9.8 mg/dL (8.6-10.3); Potassium 3.6 mEq/L (3.5-5.1)
[2019-05-02 07:28] VITALS: BP 115/80
[2019-05-02] MEDS: Cholecalciferol (D-3) 1,000 UNIT (25MCG) TABLET PO SCH (09:07)
== END 2019-05-02 10:13 | disposition home or self-care (01) | DRG 641 ==
LOC: EMEROOARM 15:10 → 2ANU 15:10 → SUATTDRO 18:48 → 2ANU 20:50 → SUATTDRO 04-28 11:47
PROVIDERS: ADMIT Internal Medicine; ATTEND Family Medicine

== ENCOUNTER 2019-05-03 18:47 | Observation (INO) ==
[2019-05-03] MEDS ORDERED: 0.9 % Sodium Chloride 1,000 ML IV ONE (20:01)
[2019-05-03 20:40] LABS: Bilirubin,Urine Small (Negative); Blood,Urine Negative (Negative); Clarity,Urine Cloudy (Clear); Color,Urine Dark Yellow (Yellow); Glucose,Urine (UA) Normal (Normal); Ketones,Urine Negative (Negative); Leukocyte Esterase,Urine Negative (Negative); Nitrite,Urine Negative (Negative); Protein,Urine 100 mg/dL (Neg-Trace); Specific Gravity,Urine 1.026 (1.010-1.025); Urobilinogen,Urine Normal (Normal)
[2019-05-03 20:42] LABS: Bacteria,Urine None Seen per hpf (None-Few); Squamous Epithelial Cell,Urine Many per lpf (None-Few)
[2019-05-03 21:15] LABS: Hematocrit 36.8 % (37.5-50.1); Mean Corpuscular HGB Conc 33.2 g/dL (31.6-35.5); Mean Corpuscular Hemoglobin 25.9 pg (28.0-33.3); Mean Corpuscular Volume 78.1 fL (83.0-100.0); Mean Platelet Volume 9.5 fL (9.4-12.4); Platelet Count 374 K/mcL (140-400); Red Blood Count 4.71 M/mcL (4.19-5.50); Red Cell Distribution Width 23.8 % (11.5-14.5); White Blood Count 5.7 K/mcL (4.3-11.1)
[2019-05-03 21:21] LABS: Hemoglobin 12.2 g/dL (12.9-16.9)
[2019-05-03 21:37] LABS: Alanine Aminotransferase 68 Units/L (7-52); Albumin 4.4 g/dL (3.5-5.7); Alkaline Phosphatase 187 Units/L (34-104); Aspartate Amino Transferase 64 Units/L (13-39); BUN/Creatinine Ratio 7 (6-26); Bilirubin,Total 0.7 mg/dL (0.3-1.0); Blood Urea Nitrogen 19 mg/dL (6-20); Calcium 10.3 mg/dL (8.6-10.3); Carbon Dioxide 24 mEq/L (23-29); Chloride 98 mEq/L (98-107); Globulin 4.5 g/dL (2.4-3.5); Glucose 131 mg/dL (70-105); Osmolality,Calculated 288 (280-300); Potassium 4.2 mEq/L (3.5-5.1); Sodium 137 mEq/L (136-145); Total Protein 8.9 g/dL (6.4-8.9); Troponin I < 0.03 ng/mL (< 0.04); eGFR For African Americans 33 (> 60); eGFR For Non-African Americans 27 (> 60)
[2019-05-03 22:21] LABS: Lymphocytes # 1.4 K/mcL (0.6-4.6); Monocytes # 0.5 K/mcL (0.0-1.3); Neutrophils # 3.9 K/mcL (1.6-8.9)
[2019-05-03 22:32] LABS: Anisocytosis 2+ (Not Present); Platelet Estimate Normal (Normal)
[2019-05-04] MEDS ORDERED: Ondansetron 4 MG/2 ML VIAL IVP PRN (01:37)
[2019-05-04] MEDS ORDERED: Naloxone 0.4 MG/ML INJ IVP PRN (01:37)
[2019-05-04] MEDS: 0.9 % Sodium Chloride 1,000 ML IVC SCH ×2 (03:19→21:02)
[2019-05-04] MEDS: GuaiFENesin Liq 200 MG/10 ML UDC PO PRN ×2 (03:32→14:07)
[2019-05-04] MEDS: *HR* OxyCODONE/APAP 5/325 TABLET PO PRN ×2 (03:32→16:36)
[2019-05-04] MEDS: *HR* Heparin 5,000 UNIT/ML VIAL SQ SCH ×3 (05:27→20:58)
[2019-05-04 07:09] LABS: Basophils % 0.6 %; Eosinophils # 0.2 K/mcL (0.0-0.6); Hematocrit 33.7 % (37.5-50.1); Immature Granulocytes % 0.9 % (0-4); Lymphocytes # 1.9 K/mcL (0.6-4.6); Lymphocytes % 34.9 %; Mean Corpuscular HGB Conc 31.5 g/dL (31.6-35.5); Mean Corpuscular Hemoglobin 25.7 pg (28.0-33.3); Mean Corpuscular Volume 81.8 fL (83.0-100.0); Mean Platelet Volume 10.3 fL (9.4-12.4); Monocytes # 0.6 K/mcL (0.0-1.3); Monocytes % 11.3 %; Neutrophils # 2.7 K/mcL (1.6-8.9); Platelet Count 318 K/mcL (140-400); Red Blood Count 4.12 M/mcL (4.19-5.50); Red Cell Distribution Width 23.6 % (11.5-14.5); Segmented Neutrophils % 49.3 %; White Blood Count 5.4 K/mcL (4.3-11.1)
[2019-05-04 07:15] LABS: Hemoglobin 10.6 g/dL (12.9-16.9)
[2019-05-04 07:28] LABS: Albumin 3.9 g/dL (3.5-5.7); Albumin/Globulin Ratio 1.1 (1.1-2.2); Bilirubin,Total 0.7 mg/dL (0.3-1.0); Calcium 9.4 mg/dL (8.6-10.3); Globulin 3.7 g/dL (2.4-3.5); Potassium 3.3 mEq/L (3.5-5.1); Total Protein 7.6 g/dL (6.4-8.9)
[2019-05-04 07:39] LABS: Platelet Estimate Normal (Normal)
[2019-05-04 07:40] LABS: Anisocytosis 1+ (Not Present)
[2019-05-04] MEDS: Fluticasone Propionate Nasal 50 MCG/SPRAY BOTTLE NS SCH (08:26)
[2019-05-04] MEDS: Cholecalciferol (D-3) 1,000 UNIT (25MCG) TABLET PO SCH (08:26)
[2019-05-05] MEDS: *HR* OxyCODONE/APAP 5/325 TABLET PO PRN (01:46)
[2019-05-05 04:21] LABS: Hematocrit 31.5 % (37.5-50.1); Hemoglobin 9.8 g/dL (12.9-16.9); Mean Corpuscular HGB Conc 31.1 g/dL (31.6-35.5); Mean Corpuscular Hemoglobin 25.6 pg (28.0-33.3); Mean Corpuscular Volume 82.2 fL (83.0-100.0); Mean Platelet Volume 9.8 fL (9.4-12.4); Platelet Count 298 K/mcL (140-400); Red Blood Count 3.83 M/mcL (4.19-5.50); Red Cell Distribution Width 23.2 % (11.5-14.5); White Blood Count 5.5 K/mcL (4.3-11.1)
[2019-05-05 04:39] LABS: Albumin 3.6 g/dL (3.5-5.7); Albumin/Globulin Ratio 1.1 (1.1-2.2); Bilirubin,Total 0.7 mg/dL (0.3-1.0); Calcium 8.8 mg/dL (8.6-10.3); Globulin 3.4 g/dL (2.4-3.5); Potassium 3.5 mEq/L (3.5-5.1)
[2019-05-05] MEDS: *HR* Heparin 5,000 UNIT/ML VIAL SQ SCH (06:19)
[2019-05-05 06:47] VITALS: BP 125/85
[2019-05-05] MEDS: Cholecalciferol (D-3) 1,000 UNIT (25MCG) TABLET PO SCH (07:56)
[2019-05-05] MEDS: Fluticasone Propionate Nasal 50 MCG/SPRAY BOTTLE NS SCH (07:57)
== END 2019-05-05 11:05 | disposition home or self-care (01) ==
LOC: 2ANU 18:47 → EMEROOARM 18:47 → SUATTDRO 23:22 → 2ANU 23:43
PROVIDERS: ADMIT Student in an Organized Health Care Education/Training Program; ATTEND Internal Medicine

== ENCOUNTER 2019-05-07 13:40 | Observation (INO) ==
[2019-05-07] MEDS ORDERED: 0.9 % Sodium Chloride 1,000 ML IVC ONE ×2 (13:57→15:20)
[2019-05-07 14:54] LABS: Hematocrit 41.9 % (37.5-50.1); Mean Corpuscular HGB Conc 32.2 g/dL (31.6-35.5); Mean Corpuscular Hemoglobin 25.8 pg (28.0-33.3); Mean Platelet Volume 10.1 fL (9.4-12.4); Platelet Count 580 K/mcL (140-400); Red Blood Count 5.24 M/mcL (4.19-5.50); Red Cell Distribution Width 23.9 % (11.5-14.5)
[2019-05-07 15:07] LABS: Albumin 4.8 g/dL (3.5-5.7); Bilirubin,Total 0.8 mg/dL (0.3-1.0); Globulin 4.7 g/dL (2.4-3.5); Potassium 3.9 mEq/L (3.5-5.1); Total Protein 9.5 g/dL (6.4-8.9)
[2019-05-07 15:20] LABS: Hemoglobin 13.5 g/dL (12.9-16.9); White Blood Count 11.4 K/mcL (4.3-11.1)
[2019-05-07 15:53] LABS: Bilirubin,Urine Small (Negative); Blood,Urine Negative (Negative); Clarity,Urine Cloudy (Clear); Color,Urine Dark Yellow (Yellow); Glucose,Urine (UA) Normal (Normal); Ketones,Urine Trace mg/dL (Negative); Leukocyte Esterase,Urine Negative (Negative); Nitrite,Urine Negative (Negative); PH,Urine 5.5 pH Units (5.0-8.0); Protein,Urine 100 mg/dL (Neg-Trace); Urobilinogen,Urine Normal (Normal)
[2019-05-07 16:00] LABS: Squamous Epithelial Cell,Urine Many per lpf (None-Few)
[2019-05-07 16:34] LABS: Hyaline Casts,Urine Many per lpf (None-Few)
[2019-05-07 16:36] LABS: RBC,Urine 0-3 per hpf (0-3)
[2019-05-07 16:38] LABS: Bacteria,Urine Few per hpf (None-Few)
[2019-05-08] MEDS ORDERED: Naloxone 0.4 MG/ML INJ IVP PRN (01:33)
[2019-05-08] MEDS: *HR* HYDROcodone/Acet 5/325 mg TABLET PO PRN ×3 (02:40→23:21)
[2019-05-08] MEDS: 0.9 % Sodium Chloride 1,000 ML IVC SCH ×2 (02:40→11:50)
[2019-05-08 06:07] LABS: Hematocrit 34.2 % (37.5-50.1); Mean Corpuscular Hemoglobin 26.3 pg (28.0-33.3); Mean Corpuscular Volume 79.5 fL (83.0-100.0); Mean Platelet Volume 9.8 fL (9.4-12.4); Platelet Count 415 K/mcL (140-400); Red Cell Distribution Width 23.6 % (11.5-14.5); White Blood Count 8.8 K/mcL (4.3-11.1)
[2019-05-08 06:13] LABS: Hemoglobin 11.3 g/dL (12.9-16.9)
[2019-05-08 06:29] LABS: Albumin/Globulin Ratio 1.1 (1.1-2.2); Bilirubin,Total 0.7 mg/dL (0.3-1.0); Calcium 9.6 mg/dL (8.6-10.3); Globulin 3.5 g/dL (2.4-3.5); Magnesium 1.7 mg/dL (1.6-2.6); Phosphorous 3.2 mg/dL (2.7-4.5); Potassium 3.7 mEq/L (3.5-5.1); Total Protein 7.5 g/dL (6.4-8.9)
[2019-05-08] MEDS ORDERED: Ondansetron ODT 4 MG TAB.RAPDIS SL PRN (11:10)
[2019-05-09 03:02] LABS: Basophils # 0.1 K/mcL (0.0-0.2); Basophils % 0.6 %; Eosinophils # 0.2 K/mcL (0.0-0.6); Eosinophils % 2.6 %; Hematocrit 36.2 % (37.5-50.1); Hemoglobin 11.4 g/dL (12.9-16.9); Immature Granulocytes % 1.5 % (0-4); Lymphocytes % 23.6 %; Mean Corpuscular HGB Conc 31.5 g/dL (31.6-35.5); Mean Corpuscular Hemoglobin 25.6 pg (28.0-33.3); Mean Corpuscular Volume 81.2 fL (83.0-100.0); Mean Platelet Volume 9.7 fL (9.4-12.4); Monocytes # 0.7 K/mcL (0.0-1.3); Monocytes % 8.2 %; Neutrophils # 5.4 K/mcL (1.6-8.9); Platelet Count 428 K/mcL (140-400); Red Blood Count 4.46 M/mcL (4.19-5.50); Red Cell Distribution Width 22.9 % (11.5-14.5); Segmented Neutrophils % 63.5 %; White Blood Count 8.5 K/mcL (4.3-11.1)
[2019-05-09 03:21] LABS: Calcium 9.8 mg/dL (8.6-10.3); Magnesium 1.8 mg/dL (1.6-2.6); Potassium 3.7 mEq/L (3.5-5.1)
[2019-05-09] MEDS ORDERED: Fluticasone Propionate Nasal 50 MCG/SPRAY BOTTLE NS SCH ×2 (09:00)
[2019-05-09] MEDS ORDERED: Cholecalciferol (D-3) 1,000 UNIT (25MCG) TABLET PO SCH (09:00)
[2019-05-09 12:24] VITALS: BP 126/91
[2019-05-09] MEDS: *HR* HYDROcodone/Acet 5/325 mg TABLET PO PRN (13:50)
== END 2019-05-09 15:01 | disposition home or self-care (01) ==
LOC: 2ANU 13:40 → EMEROOARM 13:40 → SUATTDRO 18:42 → 2ANU 20:06
PROVIDERS: ADMIT Family Medicine; ATTEND Internal Medicine

== ENCOUNTER 2019-05-10 10:57 | Observation (INO) ==
[2019-05-10] MEDS ORDERED: 0.9 % Sodium Chloride 1,000 ML IVC ONE ×2 (11:15→12:05)
[2019-05-10 11:43] LABS: Basophils % 0.4 %; Eosinophils # 0.1 K/mcL (0.0-0.6); Eosinophils % 0.7 %; Hematocrit 40.4 % (37.5-50.1); Immature Granulocytes % 0.7 % (0-4); Lymphocytes # 1.7 K/mcL (0.6-4.6); Lymphocytes % 17.4 %; Mean Corpuscular HGB Conc 32.7 g/dL (31.6-35.5); Mean Corpuscular Hemoglobin 26.3 pg (28.0-33.3); Mean Corpuscular Volume 80.6 fL (83.0-100.0); Mean Platelet Volume 9.5 fL (9.4-12.4); Monocytes # 0.8 K/mcL (0.0-1.3); Monocytes % 8.3 %; Neutrophils # 7.2 K/mcL (1.6-8.9); Platelet Count 482 K/mcL (140-400); Red Blood Count 5.01 M/mcL (4.19-5.50); Segmented Neutrophils % 72.5 %; White Blood Count 9.9 K/mcL (4.3-11.1)
[2019-05-10 11:47] LABS: Hemoglobin 13.2 g/dL (12.9-16.9)
[2019-05-10 12:06] LABS: Albumin 4.8 g/dL (3.5-5.7); Albumin/Globulin Ratio 1.1 (1.1-2.2); Bilirubin,Direct 0.4 mg/dL (0.0-0.2); Bilirubin,Indirect 0.6 mg/dL (0.0-1.0); Calcium 10.8 mg/dL (8.6-10.3); Globulin 4.2 g/dL (2.4-3.5); Potassium 3.6 mEq/L (3.5-5.1)
[2019-05-10 12:40] LABS: Bilirubin,Urine Moderate (Negative); Blood,Urine Negative (Negative); Clarity,Urine Cloudy (Clear); Color,Urine Orange (Yellow); Glucose,Urine (UA) Normal (Normal); Ketones,Urine Trace mg/dL (Negative); Leukocyte Esterase,Urine Small (Negative); Nitrite,Urine Negative (Negative); PH,Urine 5.5 pH Units (5.0-8.0); Protein,Urine 100 mg/dL (Neg-Trace); Specific Gravity,Urine > 1.030 (1.010-1.025); Urobilinogen,Urine Normal (Normal)
[2019-05-10 12:45] LABS: Bacteria,Urine None Seen per hpf (None-Few); RBC,Urine 0-3 per hpf (0-3); Squamous Epithelial Cell,Urine Many per lpf (None-Few)
[2019-05-10 13:14] LABS: Hyaline Casts,Urine Many per lpf (None-Few)
[2019-05-10 13:15] LABS: Transitional Epi Cells,Urine Few per hpf (None-Few)
[2019-05-10] MEDS ORDERED: Ondansetron 4 MG/2 ML VIAL IVP PRN (13:44)
[2019-05-10] MEDS ORDERED: Ketamine *HR* 15 MG in 0.9 % Sodium Chloride 100 ML IVPB ONE (14:02)
[2019-05-10] MEDS: 0.9 % Sodium Chloride 1,000 ML IVC SCH (17:25)
[2019-05-10] MEDS: *HR* Heparin 5,000 UNIT/ML VIAL SQ SCH (17:25)
[2019-05-11] MEDS ORDERED: Morphine Sulfate 2 MG/ML SYRINGE IVP ONE (00:32)
[2019-05-11] MEDS ORDERED: *HR* OxyCODONE Immed Rel 5 MG TABLET PO PRN (01:00)
[2019-05-11] MEDS: 0.9 % Sodium Chloride 1,000 ML IVC SCH ×2 (03:30→14:47)
[2019-05-11] MEDS: *HR* Heparin 5,000 UNIT/ML VIAL SQ SCH ×2 (05:54→18:10)
[2019-05-11] MEDS: Cholecalciferol (D-3) 1,000 UNIT (25MCG) TABLET PO SCH (08:03)
[2019-05-11] MEDS: Fluticasone Propionate Nasal 50 MCG/SPRAY BOTTLE NS SCH (08:04)
[2019-05-11 14:24] LABS: Basophils % 0.4 %; Eosinophils # 0.1 K/mcL (0.0-0.6); Eosinophils % 1.1 %; Hematocrit 34.2 % (37.5-50.1); Immature Granulocytes % 0.6 % (0-4); Lymphocytes # 1.5 K/mcL (0.6-4.6); Lymphocytes % 18.1 %; Mean Corpuscular HGB Conc 31.6 g/dL (31.6-35.5); Mean Corpuscular Hemoglobin 26.3 pg (28.0-33.3); Mean Corpuscular Volume 83.4 fL (83.0-100.0); Mean Platelet Volume 9.5 fL (9.4-12.4); Monocytes # 0.7 K/mcL (0.0-1.3); Monocytes % 7.9 %; Neutrophils # 5.9 K/mcL (1.6-8.9); Platelet Count 397 K/mcL (140-400); Red Cell Distribution Width 22.5 % (11.5-14.5); Segmented Neutrophils % 71.9 %; White Blood Count 8.3 K/mcL (4.3-11.1)
[2019-05-11 14:25] LABS: Hemoglobin 10.8 g/dL (12.9-16.9)
[2019-05-11 14:47] LABS: Calcium 9.5 mg/dL (8.6-10.3); Potassium 3.3 mEq/L (3.5-5.1)
[2019-05-11] MEDS ORDERED: Potassium Chloride Elixir 20 MEQ/15 ML UDC PO ONE (17:02)
[2019-05-11] MEDS ORDERED: *HR* OxyCODONE Immed Rel 5 MG TABLET PO STA (23:26)
[2019-05-12] MEDS: *HR* Heparin 5,000 UNIT/ML VIAL SQ SCH (07:37)
[2019-05-12] MEDS: Cholecalciferol (D-3) 1,000 UNIT (25MCG) TABLET PO SCH (07:38)
[2019-05-12] MEDS: Fluticasone Propionate Nasal 50 MCG/SPRAY BOTTLE NS SCH (07:38)
[2019-05-12 10:15] LABS: Calcium 10.5 mg/dL (8.6-10.3); Potassium 3.3 mEq/L (3.5-5.1)
[2019-05-12] MEDS ORDERED: Potassium Chloride Elixir 20 MEQ/15 ML UDC PO ONE (11:52)
[2019-05-12] MEDS ORDERED: 0.9 % Sodium Chloride 1,000 ML IVC SCH (12:00)
[2019-05-12 17:41] VITALS: BP 114/80
== END 2019-05-12 19:42 | disposition home or self-care (01) ==
LOC: SUATTDRO → 2ANU 10:57 → EMEROOARM 10:57 → SUATTDRO 14:14 → 2ANU 15:00
PROVIDERS: ADMIT Internal Medicine; ATTEND Internal Medicine

== ENCOUNTER 2019-05-18 15:08 | Observation (INO) ==
[2019-05-18] MEDS ORDERED: 0.9 % Sodium Chloride 1,000 ML IVC ONE ×2 (15:44→17:12)
[2019-05-18 16:18] LABS: Hemoglobin 13.8 g/dL (12.9-16.9); Mean Corpuscular HGB Conc 32.9 g/dL (31.6-35.5); Mean Corpuscular Hemoglobin 27.4 pg (28.0-33.3); Mean Corpuscular Volume 83.5 fL (83.0-100.0); Platelet Count 409 K/mcL (140-400); Red Blood Count 5.03 M/mcL (4.19-5.50); Red Cell Distribution Width 21.2 % (11.5-14.5); White Blood Count 10.1 K/mcL (4.3-11.1)
[2019-05-18 16:41] LABS: Albumin 4.9 g/dL (3.5-5.7); Albumin/Globulin Ratio 1.1 (1.1-2.2); Bilirubin,Total 0.9 mg/dL (0.3-1.0); Calcium 11.1 mg/dL (8.6-10.3); Globulin 4.4 g/dL (2.4-3.5); Potassium 2.8 mEq/L (3.5-5.1); Total Protein 9.3 g/dL (6.4-8.9)
[2019-05-18] MEDS ORDERED: Potassium Chloride Elixir 20 MEQ/15 ML UDC PO ONE (16:42)
[2019-05-18] MEDS ORDERED: *HR* FentaNYL (PF) 100 MCG/2 ML VIAL IVP ONE (17:12)
[2019-05-18 17:40] LABS: VBG HCO3 38 mEq/L (21-27); VBG PCO2 58 mmHg (41-51); VBG PH 7.43 pH Units (7.32-7.42); VBG PO2 65 mmHg (25-50)
[2019-05-18] MEDS ORDERED: Ondansetron ODT 4 MG TAB.RAPDIS SL PRN (17:52)
[2019-05-18] MEDS ORDERED: Naloxone 0.4 MG/ML INJ IVP PRN (17:53)
[2019-05-18] MEDS: 0.9 % Sodium Chloride 1,000 ML IVC SCH (20:44)
[2019-05-18 23:06] LABS: ABG Base Excess 12 mEq/L (-2 to 3); ABG HCO3 35 mEq/L (21-27); ABG Oxygen Saturation 99 % (95-98); ABG PCO2 39 mmHg (35-45); ABG PH 7.56 pH Units (7.32-7.45); ABG PO2 99 mmHg (85-104); ABG TCO2 36 mEq/L (20-26)
[2019-05-19 01:22] LABS: Hematocrit 37.8 % (37.5-50.1); Mean Corpuscular HGB Conc 32.3 g/dL (31.6-35.5); Mean Corpuscular Hemoglobin 27.1 pg (28.0-33.3); Mean Platelet Volume 10.5 fL (9.4-12.4); Platelet Count 367 K/mcL (140-400); White Blood Count 8.4 K/mcL (4.3-11.1)
[2019-05-19 01:23] LABS: Hemoglobin 12.2 g/dL (12.9-16.9)
[2019-05-19 01:26] LABS: INR 1.2; Prothrombin Time 13.2 Seconds (9.4-12.1)
[2019-05-19 01:44] LABS: Albumin 4.2 g/dL (3.5-5.7); Albumin/Globulin Ratio 1.1 (1.1-2.2); Bilirubin,Direct 0.4 mg/dL (0.0-0.2); Bilirubin,Indirect 0.6 mg/dL (0.0-1.0); Calcium 9.5 mg/dL (8.6-10.3); Globulin 3.7 g/dL (2.4-3.5); Magnesium 1.5 mg/dL (1.6-2.6); Potassium 3.1 mEq/L (3.5-5.1); Total Protein 7.9 g/dL (6.4-8.9)
[2019-05-19] MEDS: *HR* Heparin 5,000 UNIT/ML VIAL SQ SCH ×2 (05:06→17:05)
[2019-05-19] MEDS: 0.9 % Sodium Chloride 1,000 ML IVC SCH (05:06)
[2019-05-19] MEDS ORDERED: Potassium Chloride Elixir 20 MEQ/15 ML UDC PO ONE (05:12)
[2019-05-19] MEDS: Potassium Chloride Elixir 20 MEQ/15 ML UDC PO SCH ×2 (07:11→20:36)
[2019-05-19] MEDS: Cholecalciferol (D-3) 1,000 UNIT (25MCG) TABLET PO SCH (09:29)
[2019-05-19] MEDS: Fluticasone Propionate Nasal 50 MCG/SPRAY BOTTLE NS SCH (09:29)
[2019-05-19 15:41] LABS: Calcium 9.2 mg/dL (8.6-10.3); Potassium 3.4 mEq/L (3.5-5.1)
[2019-05-19] MEDS ORDERED: 0.9 % Sodium Chloride w KCl 40 MEQ/1,000 ML MLS IVC SCH (16:00)
[2019-05-20 05:57] LABS: Calcium 9.2 mg/dL (8.6-10.3); Potassium 3.8 mEq/L (3.5-5.1)
[2019-05-20] MEDS: *HR* Heparin 5,000 UNIT/ML VIAL SQ SCH (06:46)
[2019-05-20 07:12] VITALS: BP 119/80
[2019-05-20] MEDS: Cholecalciferol (D-3) 1,000 UNIT (25MCG) TABLET PO SCH (07:48)
[2019-05-20] MEDS: Fluticasone Propionate Nasal 50 MCG/SPRAY BOTTLE NS SCH (07:48)
[2019-05-20] MEDS ORDERED: Potassium Chloride Elixir 20 MEQ/15 ML UDC PO SCH (08:00)
== END 2019-05-20 10:14 | disposition home or self-care (01) ==
LOC: EMEROOARM 15:08 → 2ANU 15:08 → SUATTDRO 17:11 → 2ANU 18:10
PROVIDERS: ADMIT Student in an Organized Health Care Education/Training Program; ATTEND Student in an Organized Health Care Education/Training Program

== ENCOUNTER 2019-06-02 20:40 | Observation (INO) ==
[2019-06-02] MEDS ORDERED: 0.9 % Sodium Chloride 1,000 ML IVC ONE (21:03)
[2019-06-02] MEDS ORDERED: *HR* FentaNYL (PF) 100 MCG/2 ML VIAL IVP ONE (21:07)
[2019-06-02] MEDS ORDERED: Ondansetron 4 MG/2 ML VIAL IVP ONE (21:08)
[2019-06-02 21:47] LABS: Basophils # 0.1 K/mcL (0.0-0.2); Basophils % 0.5 %; Eosinophils # 0.1 K/mcL (0.0-0.6); Eosinophils % 0.5 %; Hematocrit 39.8 % (37.5-50.1); Hemoglobin 13.8 g/dL (12.9-16.9); Immature Granulocytes % 0.4 % (0-4); Lymphocytes # 1.3 K/mcL (0.6-4.6); Lymphocytes % 11.8 %; Mean Corpuscular HGB Conc 34.7 g/dL (31.6-35.5); Mean Corpuscular Hemoglobin 28.5 pg (28.0-33.3); Mean Corpuscular Volume 82.1 fL (83.0-100.0); Mean Platelet Volume 10.4 fL (9.4-12.4); Monocytes # 0.7 K/mcL (0.0-1.3); Monocytes % 6.5 %; Neutrophils # 8.6 K/mcL (1.6-8.9); Platelet Count 414 K/mcL (140-400); Red Blood Count 4.85 M/mcL (4.19-5.50); Red Cell Distribution Width 18.2 % (11.5-14.5); Segmented Neutrophils % 80.3 %; White Blood Count 10.7 K/mcL (4.3-11.1)
[2019-06-02 22:13] LABS: Albumin 4.6 g/dL (3.5-5.7); Albumin/Globulin Ratio 1.1 (1.1-2.2); Bilirubin,Direct 0.3 mg/dL (0.0-0.2); Bilirubin,Indirect 0.4 mg/dL (0.0-1.0); Bilirubin,Total 0.7 mg/dL (0.3-1.0); Calcium 10.6 mg/dL (8.6-10.3); Globulin 4.3 g/dL (2.4-3.5); Magnesium 1.8 mg/dL (1.6-2.6); Potassium 2.4 mEq/L (3.5-5.1); Total Protein 8.9 g/dL (6.4-8.9)
[2019-06-02] MEDS ORDERED: Potassium Chloride 40 MEQ, Lidocaine 1% 2 ML in 0.9 % Sodium Chloride 500 ML IVPB ONE (22:20)
[2019-06-02] MEDS ORDERED: 0.9 % Sodium Chloride 1,000 ML IV ONE (22:38)
[2019-06-02 23:01] LABS: Bilirubin,Urine Small (Negative); Blood,Urine Negative (Negative); Clarity,Urine Clear (Clear); Color,Urine Dark Yellow (Yellow); Glucose,Urine (UA) Normal (Normal); Ketones,Urine Negative (Negative); Leukocyte Esterase,Urine Trace (Negative); Nitrite,Urine Negative (Negative); Protein,Urine 100 mg/dL (Neg-Trace); Specific Gravity,Urine 1.023 (1.010-1.025); Urobilinogen,Urine Normal (Normal)
[2019-06-02 23:04] LABS: Bacteria,Urine None Seen per hpf (None-Few); Hyaline Casts,Urine Few per lpf (None-Few); RBC,Urine 0-3 per hpf (0-3); Squamous Epithelial Cell,Urine Many per lpf (None-Few); WBC,Urine 0-3 per hpf (0-3)
[2019-06-03] MEDS ORDERED: *HR* FentaNYL (PF) 100 MCG/2 ML VIAL IVP STA (01:04)
[2019-06-03] MEDS ORDERED: Naloxone 0.4 MG/ML INJ IVP PRN (01:05)
[2019-06-03 01:42] LABS: Calcium 9.1 mg/dL (8.6-10.3); Potassium 2.7 mEq/L (3.5-5.1)
[2019-06-03] MEDS ORDERED: *HR* OxyCODONE/APAP 5/325 TABLET PO ONE (04:11)
[2019-06-03] MEDS: *HR* Heparin 5,000 UNIT/ML VIAL SQ SCH ×3 (06:13→21:41)
[2019-06-03] MEDS: 0.9 % Sodium Chloride 1,000 ML IVC SCH ×2 (06:13→16:27)
[2019-06-03] MEDS ORDERED: Potassium Chloride 40 MEQ, Lidocaine 1% 2 ML in 0.9 % Sodium Chloride 500 ML IVPB ONE (07:26)
[2019-06-03] MEDS ORDERED: Loratadine 10 MG TABLET PO PRN (10:38)
[2019-06-03] MEDS ORDERED: Ondansetron ODT 4 MG TAB.RAPDIS SL PRN (10:38)
[2019-06-03] MEDS: *HR* HYDROcodone/Acet 5/325 mg TABLET PO PRN ×2 (11:27→23:36)
[2019-06-03 17:23] LABS: Calcium 8.8 mg/dL (8.6-10.3); Potassium 3.3 mEq/L (3.5-5.1)
[2019-06-03] MEDS: Fluticasone Propionate Nasal 50 MCG/SPRAY BOTTLE NS SCH (21:42)
[2019-06-04 05:08] LABS: Basophils # 0.1 K/mcL (0.0-0.2); Basophils % 0.7 %; Eosinophils # 0.2 K/mcL (0.0-0.6); Eosinophils % 2.4 %; Hematocrit 31.4 % (37.5-50.1); Immature Granulocytes % 0.3 % (0-4); Lymphocytes # 2.2 K/mcL (0.6-4.6); Lymphocytes % 29.8 %; Mean Corpuscular HGB Conc 32.8 g/dL (31.6-35.5); Mean Corpuscular Hemoglobin 28.4 pg (28.0-33.3); Mean Corpuscular Volume 86.5 fL (83.0-100.0); Mean Platelet Volume 10.3 fL (9.4-12.4); Monocytes # 0.5 K/mcL (0.0-1.3); Monocytes % 6.8 %; Neutrophils # 4.3 K/mcL (1.6-8.9); Platelet Count 260 K/mcL (140-400); Red Blood Count 3.63 M/mcL (4.19-5.50); Red Cell Distribution Width 18.6 % (11.5-14.5); White Blood Count 7.2 K/mcL (4.3-11.1)
[2019-06-04 05:16] LABS: Hemoglobin 10.3 g/dL (12.9-16.9)
[2019-06-04] MEDS: *HR* Heparin 5,000 UNIT/ML VIAL SQ SCH (05:22)
[2019-06-04 05:27] LABS: Calcium 8.8 mg/dL (8.6-10.3); Potassium 3.3 mEq/L (3.5-5.1)
[2019-06-04 06:19] VITALS: BP 113/74
[2019-06-04] MEDS: Fluticasone Propionate Nasal 50 MCG/SPRAY BOTTLE NS SCH (07:02)
[2019-06-04] MEDS ORDERED: Cholecalciferol (D-3) 1,000 UNIT (25MCG) TABLET PO SCH (09:00)
== END 2019-06-04 10:11 | disposition home or self-care (01) ==
LOC: EMEROOARM 20:40 → 2ANU 20:40 → SUATTDRO 06-03 01:04 → 2ANU 06-03 01:39
PROVIDERS: ADMIT Student in an Organized Health Care Education/Training Program; ATTEND Family Medicine

== ENCOUNTER 2020-07-10 15:50 | Observation (INO) ==
[2020-07-10] MEDS ORDERED: Isovue-370 500 ML BOTTLE IVP ONE ×2 (16:45→17:10)
[2020-07-10] MEDS ORDERED: *HR* FentaNYL (PF) 100 MCG/2 ML VIAL IVP ONE (16:47)
[2020-07-10 17:17] LABS: Basophils % 0.4 %; Eosinophils # 0.2 K/mcL (0.0-0.6); Hematocrit 31.8 % (37.5-50.1); Immature Granulocytes % 1.4 % (0-4); Lymphocytes # 1.5 K/mcL (0.6-4.6); Lymphocytes % 18.9 %; Mean Corpuscular HGB Conc 31.1 g/dL (31.6-35.5); Mean Corpuscular Volume 93.3 fL (83.0-100.0); Mean Platelet Volume 9.6 fL (9.4-12.4); Monocytes # 0.9 K/mcL (0.0-1.3); Monocytes % 11.1 %; Neutrophils # 5.1 K/mcL (1.6-8.9); Platelet Count 406 K/mcL (140-400); Red Blood Count 3.41 M/mcL (4.19-5.50); Red Cell Distribution Width 19.3 % (11.5-14.5); Segmented Neutrophils % 65.2 %
[2020-07-10 17:20] LABS: White Blood Count 7.8 K/mcL (4.3-11.1)
[2020-07-10 17:22] LABS: Hemoglobin 9.9 g/dL (12.9-16.9)
[2020-07-10 17:40] LABS: Alanine Aminotransferase 22 Units/L (7-52); Albumin 4.3 g/dL (3.5-5.7); Albumin/Globulin Ratio 1.7 (1.1-2.2); Alkaline Phosphatase 100 Units/L (34-104); Aspartate Amino Transferase 16 Units/L (13-39); BUN/Creatinine Ratio 6 (6-26); Bilirubin,Direct 0.2 mg/dL (0.0-0.2); Bilirubin,Indirect 0.6 mg/dL (0.0-1.0); Bilirubin,Total 0.8 mg/dL (0.3-1.0); Blood Urea Nitrogen 8 mg/dL (6-20); Carbon Dioxide 26 mEq/L (23-29); Chloride 108 mEq/L (98-107); Globulin 2.6 g/dL (2.4-3.5); Glucose 106 mg/dL (70-105); Lipase 25 Units/L (11-82); Magnesium 2.1 mg/dL (1.6-2.6); Osmolality,Calculated 293 (280-300); Potassium 3.7 mEq/L (3.5-5.1); Sodium 142 mEq/L (136-145); Total Protein 6.9 g/dL (6.4-8.9); eGFR For African Americans > 60 (> 60); eGFR For Non-African Americans > 60 (> 60)
[2020-07-10] MEDS ORDERED: *HR* HYDROmorphone (PF) 1 MG/ML SYRINGE IVP ONE (18:51)
[2020-07-10] MEDS ORDERED: Meropenem 1,000 MG in Water for inj. (sterile) 20 ML IVP STA (20:04)
[2020-07-11] MEDS ORDERED: *HR* HYDROmorphone (PF) 1 MG/ML SYRINGE IVP ONE ×2 (00:25→04:19)
[2020-07-11] MEDS ORDERED: Ondansetron 4 MG/2 ML VIAL IVP PRN (04:52)
[2020-07-11] MEDS ORDERED: Naloxone 0.4 MG/ML INJ IVP PRN (04:52)
[2020-07-11] MEDS ORDERED: 0.9 % Sodium Chloride 1,000 ML IVC SCH (05:00)
[2020-07-11 06:17] LABS: Hemoglobin 9.7 g/dL (12.9-16.9); Mean Corpuscular HGB Conc 31.3 g/dL (31.6-35.5); Mean Corpuscular Hemoglobin 29.1 pg (28.0-33.3); Mean Corpuscular Volume 93.1 fL (83.0-100.0); Mean Platelet Volume 9.4 fL (9.4-12.4); Platelet Count 370 K/mcL (140-400); Red Blood Count 3.33 M/mcL (4.19-5.50); White Blood Count 10.3 K/mcL (4.3-11.1)
[2020-07-11 06:36] LABS: BUN/Creatinine Ratio 8 (6-26); Blood Urea Nitrogen 8 mg/dL (6-20); Calcium 8.6 mg/dL (8.6-10.3); Carbon Dioxide 29 mEq/L (23-29); Chloride 105 mEq/L (98-107); Glucose 102 mg/dL (70-105); Osmolality,Calculated 289 (280-300); Potassium 3.5 mEq/L (3.5-5.1); Sodium 140 mEq/L (136-145); eGFR For African Americans > 60 (> 60); eGFR For Non-African Americans > 60 (> 60)
[2020-07-11] MEDS ORDERED: Meropenem 1,000 MG in Water for inj. (sterile) 20 ML IVP SCH (08:00)
[2020-07-11 08:42] LABS: C-Reactive Protein < 5 mg/L (Less than 10)
[2020-07-11] MEDS ORDERED: Cholecalciferol (D-3) 1,000 UNIT (25MCG) TABLET PO SCH (09:00)
[2020-07-11] MEDS: Cefdinir 300 MG CAPSULE PO SCH ×2 (12:04→21:10)
[2020-07-11] MEDS: Linezolid 600 MG TABLET PO SCH ×2 (12:13→21:10)
[2020-07-11] MEDS: calcium polycarbophiL 625 MG TABLET PO SCH ×3 (12:13→21:10)
[2020-07-11 19:54] VITALS: BP 148/92
== END 2020-07-12 00:30 | disposition short-term general hospital (02) ==
LOC: 3ANU 15:50 → EMEROOARM 15:50 → 3ANU 07-11 04:53
PROVIDERS: ADMIT Student in an Organized Health Care Education/Training Program; ATTEND Student in an Organized Health Care Education/Training Program